=== PATIENT | female | born 1965 | race Caucasian/White ===

== ENCOUNTER 2022-11-06 15:08 | Inpatient (IN) | payer MEDICARE ==
[~2022-11-06] VITALS: Ht 165.1 cm; Wt 81.2 kg
[~2022-11-06 15:08] MED LIST: AMLO-257 PO; ARIP15TA27 PO; FLUO-177 PO; LEVO50 PO; METF-1211 PO; QUET25TA PO
[2022-11-06 16:56] LABS: BASOPHILS % (AUTO) 0.7 % (0.0-2.0); EOSINOPHILS % (AUTO) 1.4 % (1.0-6.0); HEMATOCRIT 39.1 % (36-46); HEMOGLOBIN 12.8 g/dL (12.0-16.0); LYMPHOCYTES # (AUTO) 1.9 K/uL (1.0-4.8); LYMPHOCYTES % (AUTO) 21.8 % (22.0-44.0); MEAN CORPUSCULAR HEMOGLOBIN 26.5 pg (26.0-34.0); MEAN CORPUSCULAR HGB CONC 32.8 G/dL (31.0-37.0); MEAN CORPUSCULAR VOLUME 81 fL (80-100); MONOCYTES # (AUTO) 0.6 K/uL (0.1-1.0); MONOCYTES % (AUTO) 6.9 % (2.0-9.0); NEUTROPHILS % (AUTO) 69.2 % (40.0-70.0); PLATELET COUNT (AUTO) 417 K/uL (150-450); RED BLOOD CELL COUNT(AUTO) 4.84 MIL/uL (4.00-5.20); RED CELL DISTRIBUTION WIDTH 13.8 % (11.5-14.5)
[2022-11-06 17:16] LABS: ANION GAP 7 mmol/L (8-16); CALCIUM, TOTAL 10.2 mg/dL (8.8-10.5); CARBON DIOXIDE 30 mmol/L (22-29); CHLORIDE 103 mmol/L (98-107); GLOMERULAR FILTR. RATE CALC > 60 mL/min (>60); GLUCOSE,RANDOM 111 mg/dL (70-110); POTASSIUM 4.2 mmol/L (3.5-5.1); SODIUM SERUM 140 mmol/L (136-145); UREA NITROGEN, BLOOD 16 mg/dL (7-18)
[2022-11-06 17:22] LABS: ALANINE AMINOTRANSFERASE 25 U/L (12-78); ALBUMIN 4.4 g/dL (3.4-5.0); ALKALINE PHOSPHATASE 62 U/L (46-116); ASPARTATE AMINOTRANSFERASE 17 U/L (15-37); BILIRUBIN,TOTAL 0.4 mg/dL (0.1-1.0); TOTAL PROTEIN, SERUM 7.8 g/dL (6.4-8.2)
[2022-11-06] MEDS ORDERED: LORazepam 2 MG TABLET PO ONE (19:15)
[2022-11-06] MEDS ORDERED: DiphenhydrAMINE HCL 25 MG CAPSULE PO ONE (19:15)
[2022-11-06] MEDS ORDERED: HALOPERIDOL 5 MG TABLET PO ONE (19:15)
[2022-11-06 19:48] LABS: COVID AG,FIA SOURCE NASOPHARYNGEAL
[2022-11-06 23:31] VITALS: BP 114/60
[2022-11-07 08:23] VITALS: BP 158/68
[2022-11-07] MEDS: ARIPiprazole 15 MG TABLET PO SCH (08:58)
[2022-11-07 09:53] LABS: BASOPHILS % (AUTO) 0.7 % (0.0-2.0); EOSINOPHILS % (AUTO) 2.2 % (1.0-6.0); HEMATOCRIT 38.2 % (36-46); HEMOGLOBIN 12.7 g/dL (12.0-16.0); LYMPHOCYTES # (AUTO) 1.3 K/uL (1.0-4.8); MEAN CORPUSCULAR HGB CONC 33.3 G/dL (31.0-37.0); MEAN CORPUSCULAR VOLUME 81 fL (80-100); MONOCYTES # (AUTO) 0.4 K/uL (0.1-1.0); NEUTROPHILS # (AUTO) 4.6 K/uL (1.8-7.7); NEUTROPHILS % (AUTO) 71.1 % (40.0-70.0); PLATELET COUNT (AUTO) 352 K/uL (150-450); RED BLOOD CELL COUNT(AUTO) 4.71 MIL/uL (4.00-5.20)
[2022-11-07] MEDS ORDERED: MAGNESIUM HYDROXIDE SUSPENSION 30 ML UDCUP PO PRN (10:15)
[2022-11-07] MEDS ORDERED: ONDANSETRON HCL 4 MG TABLET PO PRN (10:15)
[2022-11-07] MEDS ORDERED: CloNIDine HCL 0.1 MG TABLET PO PRN (10:15)
[2022-11-07] MEDS ORDERED: MAG HYDROX/AL HYDROX/SIMETH ES 30 ML SUSPENSION UDCUP PO PRN (10:15)
[2022-11-07] MEDS ORDERED: ALBUTEROL SULFATE HFA 90 MCG/PUFF 8 GM INHALER IH PRN (10:15)
[2022-11-07] MEDS ORDERED: LOPERAMIDE HCL 2 MG CAPSULE PO PRN (10:15)
[2022-11-07] MEDS ORDERED: NICOTINE 14 MG/24 HOUR PATCH TD PRN (10:15)
[2022-11-07] MEDS ORDERED: IBUPROFEN 400 MG TABLET PO PRN (10:15)
[2022-11-07] MEDS ORDERED: GuaiFENesin/D-METHORPHAN [SUGAR-FREE] 200-20MG/10 ML SYRUP UDCUP PO PRN (10:15)
[2022-11-07] MEDS ORDERED: PETROLATUM,WHITE 28 GM JELLY TP PRN (10:15)
[2022-11-07] MEDS ORDERED: DOCUSATE SODIUM 100 MG CAPSULE PO PRN (10:15)
[2022-11-07 10:19] LABS: ALANINE AMINOTRANSFERASE 40 U/L (12-78); ALKALINE PHOSPHATASE 63 U/L (46-116); ANION GAP 9 mmol/L (8-16); ASPARTATE AMINOTRANSFERASE 44 U/L (15-37); BILIRUBIN,TOTAL 0.5 mg/dL (0.1-1.0); CARBON DIOXIDE 28 mmol/L (22-29); CHLORIDE 102 mmol/L (98-107); CHOL/HDL RATIO 3.6 (3.9-5.7); CHOLESTEROL 161 mg/dL (131-200); CREATININE 0.88 mg/dL (0.60-1.30); GLOMERULAR FILTR. RATE CALC > 60 mL/min (>60); GLUCOSE,RANDOM 313 mg/dL (70-110); HDL CHOLESTEROL 45 mg/dL (40-60); LDL CHOL (CALC.) 82 mg/dL (0-130); POTASSIUM 3.9 mmol/L (3.5-5.1); SODIUM SERUM 139 mmol/L (136-145); TOTAL PROTEIN, SERUM 7.6 g/dL (6.4-8.2); TRIGLYCERIDES 172 mg/dL (15-150); UREA NITROGEN, BLOOD 16 mg/dL (7-18)
[2022-11-07 10:40] LABS: HCG,QUANTITATIVE 6 mIU/mL (0-6); THYROID STIMULATING HORMONE 0.43 uIU/mL (0.36-3.74)
[2022-11-07] MEDS ORDERED: HALOPERIDOL 5 MG TABLET PO PRN (14:45)
[2022-11-07] MEDS: AmLODIPine BESYLATE 5 MG TABLET PO SCH (16:38)
[2022-11-07] MEDS: MetFORMIN HCL 500 MG TABLET PO SCH (16:38)
[2022-11-07 17:37] VITALS: BP 142/66
[2022-11-07] MEDS ORDERED: INSULIN LISPRO 100 UNITS/ML SQ PRN (17:45)
[2022-11-07] MEDS ORDERED: DEXTROSE 50%-WATER 25 GM/50 ML SYRINGE IVP PRN (17:45)
[2022-11-07 17:57] LABS: GLUCOMETER DEV NAME(LOC) BV3S.; GLUCOSE,POINT OF CARE 229 MG/DL (70-110)
[2022-11-07 20:12] VITALS: BP 142/66
[2022-11-07] MEDS: FLUoxetine HCL 20 MG CAPSULE PO SCH (21:34)
[2022-11-07 21:36] LABS: GLUCOMETER DEV NAME(LOC) BV3S.; GLUCOSE,POINT OF CARE 172 MG/DL (70-110)
[2022-11-07] MEDS: ZOLPIDEM TARTRATE 10 MG TABLET PO PRN (21:39)
[2022-11-07] MEDS: LORazepam 2 MG TABLET PO PRN (21:40)
[2022-11-08] VITALS: BP 146/68
[2022-11-08] MEDS ORDERED: GLUCAGON,HUMAN RECOMBINANT 1 MG VIAL IM PRN
[2022-11-08] MEDS: MetFORMIN HCL 500 MG TABLET PO SCH ×2 (06:14→16:28)
[2022-11-08] MEDS: LEVOTHYROXINE SODIUM 50 MCG TABLET PO SCH (06:14)
[2022-11-08] MEDS: INSULIN LISPRO 100 UNITS/ML SQ PRN ×3 (06:17→16:35)
[2022-11-08 06:26] LABS: GLUCOMETER DEV NAME(LOC) BV3S.; GLUCOSE,POINT OF CARE 101 MG/DL (70-110)
[2022-11-08] MEDS: ARIPiprazole 15 MG TABLET PO SCH (08:04)
[2022-11-08] MEDS: AmLODIPine BESYLATE 5 MG TABLET PO SCH ×2 (08:05→16:28)
[2022-11-08] MEDS: LORazepam 2 MG TABLET PO PRN (08:05)
[2022-11-08 09:26] VITALS: BP 150/76
[2022-11-08 10:48] VITALS: BP 150/76
[2022-11-08 11:51] LABS: GLUCOMETER DEV NAME(LOC) BV3S.; GLUCOSE,POINT OF CARE 187 MG/DL (70-110)
[2022-11-08] MEDS ORDERED: ARIPiprazole LAUROXIL ER SUSPENSION 882 MG/3.2 ML SYRINGE IM ONE (17:00)
[2022-11-08] MEDS ORDERED: ARIPiprazole LAUROXIL,SUBMICR. ER SUSPENSION 675 MG/2.4 ML SYRINGE IM ONE (17:00)
[2022-11-08 17:21] LABS: GLUCOMETER DEV NAME(LOC) BV3S.; GLUCOSE,POINT OF CARE 178 MG/DL (70-110)
[2022-11-08 20:03] VITALS: BP_SYST 137; BP_SYST 139; BP_DIAS 60; BP_DIAS 65
[2022-11-08] MEDS: FLUoxetine HCL 20 MG CAPSULE PO SCH (20:06)
[2022-11-08 20:40] LABS: GLUCOMETER DEV NAME(LOC) BV3S.; GLUCOSE,POINT OF CARE 136 MG/DL (70-110)
[2022-11-09 05:50] LABS: GLUCOMETER DEV NAME(LOC) BV3S.; GLUCOSE,POINT OF CARE 211 MG/DL (70-110)
[2022-11-09] MEDS: LEVOTHYROXINE SODIUM 50 MCG TABLET PO SCH (06:16)
[2022-11-09] MEDS: MetFORMIN HCL 500 MG TABLET PO SCH ×2 (06:16→16:47)
[2022-11-09] MEDS: INSULIN LISPRO 100 UNITS/ML SQ PRN ×3 (06:27→20:40)
[2022-11-09 07:39] LABS: AMPHET/METH SCREEN,URINE NEGATIVE (NEGATIVE); BARBITURATE SCREEN, URINE NEGATIVE (NEGATIVE); BENZODIAZEPINES SCREEN,URINE NEGATIVE (NEGATIVE); CANNABINOID SCREEN,URINE NEGATIVE (NEGATIVE); COCAINE SCREEN,URINE NEGATIVE (NEGATIVE); METHADONE SCREEN, URINE NEGATIVE (NEGATIVE); OPIATE SCREEN,URINE NEGATIVE (NEGATIVE); PHENCYCLIDINE SCREEN,URINE NEGATIVE (NEGATIVE)
[2022-11-09] MEDS: LORazepam 2 MG TABLET PO PRN ×2 (08:12→16:47)
[2022-11-09] MEDS: CHOLECALCIFEROL (VIT D3) 5,000 [125 MCG] UNITS CAPSULE PO SCH (08:12)
[2022-11-09] MEDS: ARIPiprazole 15 MG TABLET PO SCH (08:12)
[2022-11-09] MEDS: AmLODIPine BESYLATE 5 MG TABLET PO SCH ×2 (08:12→16:47)
[2022-11-09 08:23] VITALS: BP 118/79
[2022-11-09] MEDS ORDERED: LISI40TA9 PO (12:17)
[2022-11-09] MEDS ORDERED: ROSU5TAB PO (12:17)
[2022-11-09] MEDS ORDERED: GLIM4 PO (12:17)
[2022-11-09] MEDS ORDERED: PIOG30TA70 PO (12:17)
[2022-11-09] MEDS ORDERED: QUET50TA24 PO (12:17)
[2022-11-09] MEDS ORDERED: FURO20TA4 PO (12:17)
[2022-11-09] MEDS ORDERED: ATEN-72 PO (12:17)
[2022-11-09] MEDS ORDERED: INSU3INS3 SQ (12:17)
[2022-11-09] MEDS ORDERED: FENO160T16 PO (12:17)
[2022-11-09] MEDS ORDERED: HYDR25TA84 PO (12:17)
[2022-11-09 12:51] LABS: GLUCOMETER DEV NAME(LOC) BV3S.; GLUCOSE,POINT OF CARE 128 MG/DL (70-110)
[2022-11-09 16:51] LABS: GLUCOMETER DEV NAME(LOC) BV3S.; GLUCOSE,POINT OF CARE 169 MG/DL (70-110)
[2022-11-09 20:00] VITALS: BP 158/81
[2022-11-09] MEDS: FLUoxetine HCL 20 MG CAPSULE PO SCH (20:15)
[2022-11-09 20:46] LABS: GLUCOMETER DEV NAME(LOC) BV3S.; GLUCOSE,POINT OF CARE 220 MG/DL (70-110)
[2022-11-10] MEDS: MetFORMIN HCL 500 MG TABLET PO SCH ×2 (06:12→16:29)
[2022-11-10] MEDS: LEVOTHYROXINE SODIUM 50 MCG TABLET PO SCH (06:12)
[2022-11-10] MEDS: INSULIN LISPRO 100 UNITS/ML SQ PRN ×4 (06:17→21:27)
[2022-11-10 06:26] LABS: GLUCOMETER DEV NAME(LOC) BV3S.; GLUCOSE,POINT OF CARE 148 MG/DL (70-110)
[2022-11-10 08:08] VITALS: BP 166/80
[2022-11-10] MEDS: ARIPiprazole 15 MG TABLET PO SCH (08:36)
[2022-11-10] MEDS: LORazepam 2 MG TABLET PO PRN ×2 (08:36→20:08)
[2022-11-10] MEDS: AmLODIPine BESYLATE 5 MG TABLET PO SCH ×2 (08:36→16:29)
[2022-11-10 12:41] LABS: GLUCOMETER DEV NAME(LOC) BV3S.; GLUCOSE,POINT OF CARE 182 MG/DL (70-110)
[2022-11-10 14:15] VITALS: BP 159/88
[2022-11-10] MEDS ORDERED: AmLODIPine BESYLATE 5 MG TABLET PO ONE (14:45)
[2022-11-10] MEDS: LISINOPRIL 10 MG TABLET PO SCH (14:54)
[2022-11-10] MEDS ORDERED: AmLODIPine BESYLATE 5 MG TABLET PO SCH (17:00)
[2022-11-10 17:06] LABS: GLUCOMETER DEV NAME(LOC) BV3S.; GLUCOSE,POINT OF CARE 182 MG/DL (70-110)
[2022-11-10] MEDS: FLUoxetine HCL 20 MG CAPSULE PO SCH (20:07)
[2022-11-10] MEDS: ACETAMINOPHEN 325 MG TABLET PO PRN (20:11)
[2022-11-10 21:36] LABS: GLUCOMETER DEV NAME(LOC) BV3S.; GLUCOSE,POINT OF CARE 196 MG/DL (70-110)
[2022-11-11] MEDS: LEVOTHYROXINE SODIUM 50 MCG TABLET PO SCH (06:12)
[2022-11-11] MEDS: MetFORMIN HCL 500 MG TABLET PO SCH ×2 (06:13→16:51)
[2022-11-11] MEDS: INSULIN LISPRO 100 UNITS/ML SQ PRN ×4 (06:28→20:59)
[2022-11-11 06:31] LABS: GLUCOMETER DEV NAME(LOC) BV3S.; GLUCOSE,POINT OF CARE 158 MG/DL (70-110)
[2022-11-11] MEDS: LISINOPRIL 10 MG TABLET PO SCH (08:29)
[2022-11-11] MEDS: ARIPiprazole 15 MG TABLET PO SCH (08:29)
[2022-11-11] MEDS: AmLODIPine BESYLATE 5 MG TABLET PO SCH ×2 (08:29→16:51)
[2022-11-11 08:34] VITALS: BP 141/75
[2022-11-11 11:57] LABS: GLUCOMETER DEV NAME(LOC) BV3S.; GLUCOSE,POINT OF CARE 222 MG/DL (70-110)
[2022-11-11 16:41] LABS: GLUCOMETER DEV NAME(LOC) BV3S.; GLUCOSE,POINT OF CARE 232 MG/DL (70-110)
[2022-11-11] MEDS: FLUoxetine HCL 20 MG CAPSULE PO SCH (20:13)
[2022-11-11 21:00] LABS: GLUCOMETER DEV NAME(LOC) BV3S.; GLUCOSE,POINT OF CARE 192 MG/DL (70-110)
[2022-11-12] MEDS: MetFORMIN HCL 500 MG TABLET PO SCH ×2 (06:09→16:34)
[2022-11-12] MEDS: LEVOTHYROXINE SODIUM 50 MCG TABLET PO SCH (06:09)
[2022-11-12] MEDS: INSULIN LISPRO 100 UNITS/ML SQ PRN ×4 (06:27→20:48)
[2022-11-12 06:31] LABS: GLUCOMETER DEV NAME(LOC) BV3S.; GLUCOSE,POINT OF CARE 183 MG/DL (70-110)
[2022-11-12] MEDS: ARIPiprazole 15 MG TABLET PO SCH (08:14)
[2022-11-12] MEDS: LISINOPRIL 10 MG TABLET PO SCH (08:14)
[2022-11-12] MEDS: AmLODIPine BESYLATE 5 MG TABLET PO SCH ×2 (08:14→16:34)
[2022-11-12 08:20] VITALS: BP 158/63
[2022-11-12] MEDS: LORazepam 2 MG TABLET PO PRN (09:53)
[2022-11-12 11:51] LABS: GLUCOMETER DEV NAME(LOC) BV3S.; GLUCOSE,POINT OF CARE 152 MG/DL (70-110)
[2022-11-12 15:56] LABS: GLUCOMETER DEV NAME(LOC) POC.BV
[2022-11-12 17:01] LABS: GLUCOMETER DEV NAME(LOC) BV3S.; GLUCOSE,POINT OF CARE 152 MG/DL (70-110)
[2022-11-12] MEDS: FLUoxetine HCL 20 MG CAPSULE PO SCH (20:44)
[2022-11-12 20:45] VITALS: BP 171/81
[2022-11-12 20:46] LABS: GLUCOMETER DEV NAME(LOC) BV3S.; GLUCOSE,POINT OF CARE 188 MG/DL (70-110)
[2022-11-13] MEDS: LEVOTHYROXINE SODIUM 50 MCG TABLET PO SCH (06:24)
[2022-11-13 06:26] LABS: GLUCOMETER DEV NAME(LOC) BV3S.; GLUCOSE,POINT OF CARE 175 MG/DL (70-110)
[2022-11-13] MEDS: INSULIN LISPRO 100 UNITS/ML SQ PRN ×4 (06:53→21:16)
[2022-11-13] MEDS: MetFORMIN HCL 500 MG TABLET PO SCH ×2 (06:55→16:44)
[2022-11-13 08:09] VITALS: BP 142/69
[2022-11-13] MEDS: LISINOPRIL 10 MG TABLET PO SCH (08:41)
[2022-11-13] MEDS: AmLODIPine BESYLATE 5 MG TABLET PO SCH ×2 (08:41→16:44)
[2022-11-13] MEDS: ARIPiprazole 15 MG TABLET PO SCH (08:41)
[2022-11-13] MEDS: LORazepam 2 MG TABLET PO PRN (09:55)
[2022-11-13 12:07] LABS: GLUCOMETER DEV NAME(LOC) BV3S.; GLUCOSE,POINT OF CARE 187 MG/DL (70-110)
[2022-11-13 16:26] VITALS: BP 171/70
[2022-11-13 16:51] LABS: GLUCOMETER DEV NAME(LOC) BV3S.; GLUCOSE,POINT OF CARE 231 MG/DL (70-110)
[2022-11-13 20:00] VITALS: BP 146/80
[2022-11-13] MEDS: FLUoxetine HCL 20 MG CAPSULE PO SCH (20:30)
[2022-11-13 20:41] LABS: GLUCOMETER DEV NAME(LOC) BV3S.; GLUCOSE,POINT OF CARE 209 MG/DL (70-110)
[2022-11-14] MEDS: LEVOTHYROXINE SODIUM 50 MCG TABLET PO SCH (06:35)
[2022-11-14] MEDS: MetFORMIN HCL 500 MG TABLET PO SCH ×2 (06:43→16:49)
[2022-11-14] MEDS: INSULIN LISPRO 100 UNITS/ML SQ PRN ×3 (06:46→16:53)
[2022-11-14 08:10] VITALS: BP 143/72
[2022-11-14] MEDS: LISINOPRIL 10 MG TABLET PO SCH (08:18)
[2022-11-14] MEDS: ARIPiprazole 15 MG TABLET PO SCH (08:19)
[2022-11-14] MEDS: AmLODIPine BESYLATE 5 MG TABLET PO SCH ×2 (08:19→16:49)
[2022-11-14] MEDS: LORazepam 2 MG TABLET PO PRN (11:55)
[2022-11-14 11:56] LABS: GLUCOMETER DEV NAME(LOC) BV3S.; GLUCOSE,POINT OF CARE 193 MG/DL (70-110)
[2022-11-14 16:51] LABS: GLUCOMETER DEV NAME(LOC) BV3S.; GLUCOSE,POINT OF CARE 237 MG/DL (70-110)
[2022-11-14 20:00] VITALS: BP 140/76
[2022-11-14] MEDS: FLUoxetine HCL 20 MG CAPSULE PO SCH (21:03)
[2022-11-15] MEDS: MetFORMIN HCL 500 MG TABLET PO SCH ×2 (06:24→16:13)
[2022-11-15] MEDS: LEVOTHYROXINE SODIUM 50 MCG TABLET PO SCH (06:25)
[2022-11-15 06:41] LABS: GLUCOMETER DEV NAME(LOC) BV3S.; GLUCOSE,POINT OF CARE 207 MG/DL (70-110)
[2022-11-15] MEDS: INSULIN LISPRO 100 UNITS/ML SQ PRN ×4 (06:46→20:37)
[2022-11-15] MEDS: ARIPiprazole 15 MG TABLET PO SCH (08:18)
[2022-11-15] MEDS: LISINOPRIL 10 MG TABLET PO SCH (08:18)
[2022-11-15] MEDS: AmLODIPine BESYLATE 5 MG TABLET PO SCH ×2 (08:18→16:13)
[2022-11-15 08:46] VITALS: BP 122/80
[2022-11-15 11:41] LABS: GLUCOMETER DEV NAME(LOC) BV3S.; GLUCOSE,POINT OF CARE 207 MG/DL (70-110)
[2022-11-15] MEDS: ACETAMINOPHEN 325 MG TABLET PO PRN (13:27)
[2022-11-15] MEDS: LORazepam 2 MG TABLET PO PRN (13:27)
[2022-11-15 16:31] LABS: GLUCOMETER DEV NAME(LOC) BV3S.; GLUCOSE,POINT OF CARE 210 MG/DL (70-110)
[2022-11-15 20:03] VITALS: BP 140/70
[2022-11-15] MEDS: FLUoxetine HCL 20 MG CAPSULE PO SCH (20:05)
[2022-11-15 20:56] LABS: GLUCOMETER DEV NAME(LOC) BV3S.; GLUCOSE,POINT OF CARE 214 MG/DL (70-110)
[2022-11-16] MEDS: MetFORMIN HCL 500 MG TABLET PO SCH ×2 (06:34→16:27)
[2022-11-16] MEDS: LEVOTHYROXINE SODIUM 50 MCG TABLET PO SCH (06:34)
[2022-11-16] MEDS: INSULIN LISPRO 100 UNITS/ML SQ PRN ×4 (06:39→20:54)
[2022-11-16 06:51] LABS: GLUCOMETER DEV NAME(LOC) BV3S.; GLUCOSE,POINT OF CARE 168 MG/DL (70-110)
[2022-11-16] MEDS: AmLODIPine BESYLATE 5 MG TABLET PO SCH ×2 (08:15→16:27)
[2022-11-16] MEDS: CHOLECALCIFEROL (VIT D3) 5,000 [125 MCG] UNITS CAPSULE PO SCH (08:15)
[2022-11-16] MEDS: ARIPiprazole 15 MG TABLET PO SCH (08:15)
[2022-11-16] MEDS: LISINOPRIL 10 MG TABLET PO SCH (08:16)
[2022-11-16 08:17] VITALS: BP 154/76
[2022-11-16 11:36] LABS: GLUCOMETER DEV NAME(LOC) BV3S.; GLUCOSE,POINT OF CARE 224 MG/DL (70-110)
[2022-11-16 16:35] LABS: GLUCOMETER DEV NAME(LOC) BV3S.; GLUCOSE,POINT OF CARE 237 MG/DL (70-110)
[2022-11-16] MEDS: FLUoxetine HCL 20 MG CAPSULE PO SCH (20:28)
[2022-11-16] MEDS: ZOLPIDEM TARTRATE 10 MG TABLET PO PRN (20:28)
[2022-11-16 20:56] LABS: GLUCOMETER DEV NAME(LOC) BV3S.; GLUCOSE,POINT OF CARE 228 MG/DL (70-110)
[2022-11-16 22:00] VITALS: BP 140/65
[2022-11-17 06:16] LABS: GLUCOMETER DEV NAME(LOC) BV3S.; GLUCOSE,POINT OF CARE 181 MG/DL (70-110)
[2022-11-17] MEDS: LEVOTHYROXINE SODIUM 50 MCG TABLET PO SCH (06:19)
[2022-11-17] MEDS: MetFORMIN HCL 500 MG TABLET PO SCH ×2 (06:23→16:20)
[2022-11-17] MEDS: INSULIN LISPRO 100 UNITS/ML SQ PRN ×3 (06:37→20:42)
[2022-11-17] MEDS: AmLODIPine BESYLATE 5 MG TABLET PO SCH ×2 (08:25→16:20)
[2022-11-17] MEDS: ARIPiprazole 15 MG TABLET PO SCH (08:25)
[2022-11-17] MEDS: LISINOPRIL 10 MG TABLET PO SCH (08:25)
[2022-11-17 08:56] VITALS: BP 159/75
[2022-11-17 16:41] LABS: GLUCOMETER DEV NAME(LOC) BV3S.; GLUCOSE,POINT OF CARE 211 MG/DL (70-110)
[2022-11-17] MEDS: FLUoxetine HCL 20 MG CAPSULE PO SCH (20:15)
[2022-11-17 20:50] LABS: GLUCOMETER DEV NAME(LOC) BV3S.; GLUCOSE,POINT OF CARE 208 MG/DL (70-110)
[2022-11-17 21:27] VITALS: BP 129/80
[2022-11-18 06:26] LABS: GLUCOMETER DEV NAME(LOC) BV3S.; GLUCOSE,POINT OF CARE 228 MG/DL (70-110)
[2022-11-18] MEDS: INSULIN LISPRO 100 UNITS/ML SQ PRN ×2 (06:33→11:44)
[2022-11-18] MEDS: LEVOTHYROXINE SODIUM 50 MCG TABLET PO SCH (06:34)
[2022-11-18] MEDS: MetFORMIN HCL 500 MG TABLET PO SCH (06:41)
[2022-11-18 08:25] VITALS: BP 132/65
[2022-11-18] MEDS: LISINOPRIL 10 MG TABLET PO SCH (08:45)
[2022-11-18] MEDS: ARIPiprazole 15 MG TABLET PO SCH (08:45)
[2022-11-18] MEDS: AmLODIPine BESYLATE 5 MG TABLET PO SCH (08:45)
[2022-11-18] MEDS ORDERED: CHOL500013 PO (09:04)
[2022-11-18] MEDS ORDERED: LISI-893 PO (09:04)
[2022-11-18] MEDS ORDERED: LEVO50 PO (09:04)
[2022-11-18] MEDS ORDERED: FLUO20CA36 PO (09:04)
[2022-11-18] MEDS ORDERED: AMLO-257 PO (09:04)
[2022-11-18] MEDS ORDERED: ARIP882S2 IM (09:04)
[2022-11-18] MEDS ORDERED: METF-1211 PO (09:04)
[2022-11-18 11:16] LABS: GLUCOMETER DEV NAME(LOC) BV3S.; GLUCOSE,POINT OF CARE 309 MG/DL (70-110)
[2022-12-08] MEDS ORDERED: ARIPiprazole LAUROXIL ER SUSPENSION 882 MG/3.2 ML SYRINGE IM SCH (09:00)
== END 2022-11-18 13:30 | disposition home or self-care (01) | DRG 885 ==
LOC: EMS 15:11 → B3A 20:00
PROVIDERS: ADMIT Psychiatry & Neurology Psychiatry; ATTEND Psychiatry & Neurology Psychiatry
DX: F20.0 Paranoid schizophrenia (principal); E11.65 Type 2 diabetes mellitus with hyperglycemia; F10.10 Alcohol abuse, uncomplicated; I10 Essential (primary) hypertension; Z20.822 Contact with and (suspected) exposure to COVID-19; E03.9 Hypothyroidism, unspecified; F17.210 Nicotine dependence, cigarettes, uncomplicated; E78.00 Pure hypercholesterolemia, unspecified; F41.9 Anxiety disorder, unspecified; F32.A Depression, unspecified; F19.10 Other psychoactive substance abuse, uncomplicated; Y90.0 Blood alcohol level of less than 20 mg/100 ml; Z88.7 Allergy status to serum and vaccine; Z79.84 Long term (current) use of oral hypoglycemic drugs; Z79.899 Other long term (current) drug therapy; Z81.8 Family history of other mental and behavioral disorders
CPT/HCPCS: 80053; 80061; 80307; 82962; 83036; 84443; 84702; 84703; 85025; 99285; G0480; J3535; Q9967

== ENCOUNTER 2022-11-20 12:46 | Inpatient (IN) | payer MEDICARE ==
[~2022-11-20] VITALS: Ht 165.1 cm; Wt 80.4 kg
[~2022-11-20 12:46] MED LIST changes: -ARIP15TA27 PO; +ARIP882S2 IM; +CHOL500013 PO; -FLUO-177 PO; +FLUO20CA36 PO; +LISI-893 PO; -QUET25TA PO
[2022-11-20 13:44] LABS: EOSINOPHILS % (AUTO) 2.9 % (1.0-6.0); HEMATOCRIT 38.7 % (36-46); LYMPHOCYTES # (AUTO) 1.7 K/uL (1.0-4.8); LYMPHOCYTES % (AUTO) 21.8 % (22.0-44.0); MEAN CORPUSCULAR HEMOGLOBIN 26.8 pg (26.0-34.0); MEAN CORPUSCULAR HGB CONC 33.5 G/dL (31.0-37.0); MEAN CORPUSCULAR VOLUME 80 fL (80-100); MONOCYTES # (AUTO) 0.5 K/uL (0.1-1.0); MONOCYTES % (AUTO) 6.5 % (2.0-9.0); NEUTROPHILS # (AUTO) 5.4 K/uL (1.8-7.7); NEUTROPHILS % (AUTO) 67.8 % (40.0-70.0); PLATELET COUNT (AUTO) 330 K/uL (150-450); RED BLOOD CELL COUNT(AUTO) 4.83 MIL/uL (4.00-5.20); RED CELL DISTRIBUTION WIDTH 13.8 % (11.5-14.5)
[2022-11-20 13:52] LABS: ANION GAP 8 mmol/L (8-16); CARBON DIOXIDE 28 mmol/L (22-29); CHLORIDE 102 mmol/L (98-107); CREATININE 0.77 mg/dL (0.60-1.30); GLOMERULAR FILTR. RATE CALC > 60 mL/min (>60); GLUCOSE,RANDOM 218 mg/dL (70-110); POTASSIUM 4.2 mmol/L (3.5-5.1); SODIUM SERUM 138 mmol/L (136-145)
[2022-11-20 13:58] LABS: ALANINE AMINOTRANSFERASE 34 U/L (12-78); ALBUMIN 3.8 g/dL (3.4-5.0); ALKALINE PHOSPHATASE 94 U/L (46-116); ASPARTATE AMINOTRANSFERASE 21 U/L (15-37); BILIRUBIN,TOTAL 0.6 mg/dL (0.1-1.0); TOTAL PROTEIN, SERUM 7.4 g/dL (6.4-8.2)
[2022-11-20] MEDS ORDERED: HALOPERIDOL 5 MG TABLET PO PRN (17:15)
[2022-11-20] MEDS ORDERED: LORazepam 2 MG TABLET PO PRN (17:15)
[2022-11-20 17:49] LABS: COVID AG,FIA SOURCE NASOPHARYNGEAL
[2022-11-20 21:44] VITALS: BP 171/94
[2022-11-20 22:10] LABS: GLUCOMETER DEV NAME(LOC) BV2S.; GLUCOSE,POINT OF CARE 327 MG/DL (70-110)
[2022-11-20 22:30] VITALS: BP 159/80
[2022-11-21] MEDS ORDERED: MetFORMIN HCL 500 MG TABLET PO ONE
[2022-11-21] MEDS ORDERED: AmLODIPine BESYLATE 5 MG TABLET PO ONE
[2022-11-21] MEDS ORDERED: MetFORMIN HCL 500 MG TABLET PO SCH (07:00)
[2022-11-21 07:07] VITALS: BP 148/78
[2022-11-21 08:56] VITALS: BP 144/64
[2022-11-21] MEDS ORDERED: AmLODIPine BESYLATE 5 MG TABLET PO SCH ×2 (09:00)
[2022-11-21] MEDS ORDERED: IBUPROFEN 400 MG TABLET PO PRN (10:00)
[2022-11-21] MEDS ORDERED: MAGNESIUM HYDROXIDE SUSPENSION 30 ML UDCUP PO PRN (10:00)
[2022-11-21] MEDS ORDERED: NICOTINE 14 MG/24 HOUR PATCH TD PRN (10:00)
[2022-11-21] MEDS ORDERED: ALBUTEROL SULFATE HFA 90 MCG/PUFF 8 GM INHALER IH PRN (10:00)
[2022-11-21] MEDS ORDERED: ONDANSETRON HCL 4 MG TABLET PO PRN (10:00)
[2022-11-21] MEDS ORDERED: GuaiFENesin/D-METHORPHAN [SUGAR-FREE] 200-20MG/10 ML SYRUP UDCUP PO PRN (10:00)
[2022-11-21] MEDS ORDERED: LOPERAMIDE HCL 2 MG CAPSULE PO PRN (10:00)
[2022-11-21] MEDS ORDERED: DOCUSATE SODIUM 100 MG CAPSULE PO PRN (10:00)
[2022-11-21] MEDS ORDERED: PETROLATUM,WHITE 28 GM JELLY TP PRN (10:00)
[2022-11-21] MEDS ORDERED: MAG HYDROX/AL HYDROX/SIMETH ES 30 ML SUSPENSION UDCUP PO PRN (10:00)
[2022-11-21] MEDS ORDERED: CloNIDine HCL 0.1 MG TABLET PO PRN (10:00)
[2022-11-21] MEDS ORDERED: GLUCAGON,HUMAN RECOMBINANT 1 MG VIAL IM PRN (12:45)
[2022-11-21] MEDS: MetFORMIN HCL 500 MG TABLET PO SCH (17:25)
[2022-11-21] MEDS: AmLODIPine BESYLATE 5 MG TABLET PO SCH (17:25)
[2022-11-21] MEDS: INSULIN LISPRO 100 UNITS/ML SQ PRN ×2 (17:43→23:25)
[2022-11-21 17:51] LABS: GLUCOMETER DEV NAME(LOC) BV2S.; GLUCOSE,POINT OF CARE 224 MG/DL (70-110)
[2022-11-21 20:44] VITALS: BP 134/68
[2022-11-21] MEDS: FLUoxetine HCL 20 MG CAPSULE PO SCH (21:43)
[2022-11-22 05:11] LABS: GLUCOMETER DEV NAME(LOC) BV2S.; GLUCOSE,POINT OF CARE 185 MG/DL (70-110)
[2022-11-22 06:16] LABS: GLUCOMETER DEV NAME(LOC) BV2S.; GLUCOSE,POINT OF CARE 216 MG/DL (70-110)
[2022-11-22] MEDS: LEVOTHYROXINE SODIUM 50 MCG TABLET PO SCH (06:41)
[2022-11-22] MEDS: MetFORMIN HCL 500 MG TABLET PO SCH ×2 (06:41→16:37)
[2022-11-22] MEDS: INSULIN LISPRO 100 UNITS/ML SQ PRN ×4 (06:43→20:26)
[2022-11-22] MEDS: LISINOPRIL 10 MG TABLET PO SCH (08:24)
[2022-11-22] MEDS: DIVALPROEX SODIUM 500 MG DR TABLET PO SCH ×2 (08:24→20:17)
[2022-11-22] MEDS: AmLODIPine BESYLATE 5 MG TABLET PO SCH ×2 (08:24→16:37)
[2022-11-22 09:02] VITALS: BP 149/82
[2022-11-22 11:35] LABS: GLUCOMETER DEV NAME(LOC) BV2S.; GLUCOSE,POINT OF CARE 224 MG/DL (70-110)
[2022-11-22 16:35] VITALS: BP 150/84
[2022-11-22 16:55] LABS: GLUCOMETER DEV NAME(LOC) BV2S.; GLUCOSE,POINT OF CARE 251 MG/DL (70-110)
[2022-11-22 20:11] VITALS: BP 148/80
[2022-11-22] MEDS: FLUoxetine HCL 20 MG CAPSULE PO SCH (20:17)
[2022-11-22 20:46] LABS: GLUCOMETER DEV NAME(LOC) BV2S.; GLUCOSE,POINT OF CARE 205 MG/DL (70-110)
[2022-11-23 06:26] LABS: GLUCOMETER DEV NAME(LOC) BV2S.; GLUCOSE,POINT OF CARE 202 MG/DL (70-110)
[2022-11-23] MEDS: MetFORMIN HCL 500 MG TABLET PO SCH ×2 (06:41→16:30)
[2022-11-23] MEDS: LEVOTHYROXINE SODIUM 50 MCG TABLET PO SCH (06:41)
[2022-11-23] MEDS: INSULIN LISPRO 100 UNITS/ML SQ PRN ×3 (06:42→16:49)
[2022-11-23 09:01] VITALS: BP 149/84
[2022-11-23] MEDS: DIVALPROEX SODIUM 500 MG DR TABLET PO SCH ×2 (09:05→21:00)
[2022-11-23] MEDS: CHOLECALCIFEROL (VIT D3) 5,000 [125 MCG] UNITS CAPSULE PO SCH (09:05)
[2022-11-23] MEDS: AmLODIPine BESYLATE 5 MG TABLET PO SCH ×2 (09:05→16:30)
[2022-11-23] MEDS: LISINOPRIL 10 MG TABLET PO SCH (09:05)
[2022-11-23 11:56] LABS: GLUCOMETER DEV NAME(LOC) BV2S.; GLUCOSE,POINT OF CARE 196 MG/DL (70-110)
[2022-11-23 16:30] VITALS: BP 160/82
[2022-11-23 17:12] LABS: GLUCOMETER DEV NAME(LOC) BV2S.; GLUCOSE,POINT OF CARE 289 MG/DL (70-110)
[2022-11-23 20:31] VITALS: BP 159/78
[2022-11-23] MEDS: FLUoxetine HCL 20 MG CAPSULE PO SCH (21:00)
[2022-11-24 06:56] LABS: GLUCOMETER DEV NAME(LOC) BV2S.; GLUCOSE,POINT OF CARE 126 MG/DL (70-110)
[2022-11-24] MEDS: MetFORMIN HCL 500 MG TABLET PO SCH ×2 (07:19→17:27)
[2022-11-24] MEDS: LEVOTHYROXINE SODIUM 50 MCG TABLET PO SCH (07:19)
[2022-11-24 08:00] VITALS: BP 170/77
[2022-11-24] MEDS: AmLODIPine BESYLATE 5 MG TABLET PO SCH ×2 (08:31→17:27)
[2022-11-24] MEDS: LISINOPRIL 10 MG TABLET PO SCH (08:32)
[2022-11-24] MEDS: DIVALPROEX SODIUM 500 MG DR TABLET PO SCH ×2 (08:32→21:06)
[2022-11-24 09:00] VITALS: BP 154/74
[2022-11-24 09:09] VITALS: BP 140/90
[2022-11-24] MEDS: INSULIN LISPRO 100 UNITS/ML SQ PRN ×3 (11:31→21:09)
[2022-11-24 11:32] LABS: GLUCOMETER DEV NAME(LOC) BV2S.; GLUCOSE,POINT OF CARE 243 MG/DL (70-110)
[2022-11-24 12:00] VITALS: BP 150/70
[2022-11-24 18:18] VITALS: BP 140/70
[2022-11-24 20:19] VITALS: BP 148/75
[2022-11-24 20:36] LABS: GLUCOMETER DEV NAME(LOC) BV2S.; GLUCOSE,POINT OF CARE 251 MG/DL (70-110)
[2022-11-24] MEDS: FLUoxetine HCL 20 MG CAPSULE PO SCH (21:06)
[2022-11-25] MEDS: LEVOTHYROXINE SODIUM 50 MCG TABLET PO SCH (06:43)
[2022-11-25] MEDS: INSULIN LISPRO 100 UNITS/ML SQ PRN ×4 (06:44→20:14)
[2022-11-25] MEDS: MetFORMIN HCL 500 MG TABLET PO SCH ×2 (07:07→16:07)
[2022-11-25 07:11] LABS: GLUCOMETER DEV NAME(LOC) BV2S.; GLUCOSE,POINT OF CARE 190 MG/DL (70-110)
[2022-11-25] MEDS: DIVALPROEX SODIUM 500 MG DR TABLET PO SCH ×2 (08:39→20:09)
[2022-11-25] MEDS: LISINOPRIL 10 MG TABLET PO SCH (08:39)
[2022-11-25] MEDS: AmLODIPine BESYLATE 5 MG TABLET PO SCH ×2 (08:39→16:07)
[2022-11-25 09:15] VITALS: BP 140/78
[2022-11-25 11:21] LABS: GLUCOMETER DEV NAME(LOC) POC.BV
[2022-11-25 11:31] LABS: GLUCOMETER DEV NAME(LOC) BV2S.; GLUCOSE,POINT OF CARE 229 MG/DL (70-110)
[2022-11-25 16:46] LABS: GLUCOMETER DEV NAME(LOC) BV2S.; GLUCOSE,POINT OF CARE 190 MG/DL (70-110)
[2022-11-25] MEDS: FLUoxetine HCL 20 MG CAPSULE PO SCH (20:09)
[2022-11-25 20:49] VITALS: BP 141/80
[2022-11-25 20:51] LABS: GLUCOMETER DEV NAME(LOC) BV2S.; GLUCOSE,POINT OF CARE 180 MG/DL (70-110)
[2022-11-26 06:06] LABS: GLUCOMETER DEV NAME(LOC) BV2S.; GLUCOSE,POINT OF CARE 179 MG/DL (70-110)
[2022-11-26] MEDS: LEVOTHYROXINE SODIUM 50 MCG TABLET PO SCH (06:26)
[2022-11-26] MEDS: MetFORMIN HCL 500 MG TABLET PO SCH ×2 (06:26→16:38)
[2022-11-26] MEDS: INSULIN LISPRO 100 UNITS/ML SQ PRN ×3 (06:29→20:39)
[2022-11-26 08:31] VITALS: BP 144/67
[2022-11-26] MEDS: DIVALPROEX SODIUM 500 MG DR TABLET PO SCH ×2 (08:33→20:29)
[2022-11-26] MEDS: AmLODIPine BESYLATE 5 MG TABLET PO SCH ×2 (08:33→16:39)
[2022-11-26] MEDS: LISINOPRIL 10 MG TABLET PO SCH (08:33)
[2022-11-26 11:20] LABS: GLUCOMETER DEV NAME(LOC) BV2S.; GLUCOSE,POINT OF CARE 182 MG/DL (70-110)
[2022-11-26] MEDS: HYDROCORTISONE 1% 30 GM OINTMENT TP SCH (13:22)
[2022-11-26 16:55] LABS: GLUCOMETER DEV NAME(LOC) BV2S.; GLUCOSE,POINT OF CARE 154 MG/DL (70-110)
[2022-11-26 20:00] VITALS: BP 155/90
[2022-11-26] MEDS: FLUoxetine HCL 20 MG CAPSULE PO SCH (20:29)
[2022-11-26] MEDS: ZOLPIDEM TARTRATE 10 MG TABLET PO PRN (20:55)
[2022-11-26 21:12] LABS: GLUCOMETER DEV NAME(LOC) BV2S.; GLUCOSE,POINT OF CARE 286 MG/DL (70-110)
[2022-11-27 06:26] LABS: GLUCOMETER DEV NAME(LOC) BV2S.; GLUCOSE,POINT OF CARE 158 MG/DL (70-110)
[2022-11-27] MEDS: INSULIN LISPRO 100 UNITS/ML SQ PRN ×4 (06:44→20:38)
[2022-11-27] MEDS: MetFORMIN HCL 500 MG TABLET PO SCH ×2 (06:49→16:52)
[2022-11-27] MEDS: LEVOTHYROXINE SODIUM 50 MCG TABLET PO SCH (06:49)
[2022-11-27] MEDS: DIVALPROEX SODIUM 500 MG DR TABLET PO SCH ×2 (08:39→20:15)
[2022-11-27] MEDS: LISINOPRIL 10 MG TABLET PO SCH (08:40)
[2022-11-27] MEDS: AmLODIPine BESYLATE 5 MG TABLET PO SCH ×2 (08:45→16:52)
[2022-11-27] MEDS: HYDROCORTISONE 1% 30 GM OINTMENT TP SCH (09:03)
[2022-11-27 09:14] VITALS: BP 138/70
[2022-11-27 11:21] LABS: GLUCOMETER DEV NAME(LOC) BV2S.; GLUCOSE,POINT OF CARE 166 MG/DL (70-110)
[2022-11-27 16:51] LABS: GLUCOMETER DEV NAME(LOC) BV2S.; GLUCOSE,POINT OF CARE 226 MG/DL (70-110)
[2022-11-27] MEDS: FLUoxetine HCL 20 MG CAPSULE PO SCH (20:15)
[2022-11-27 20:55] VITALS: BP 137/82
[2022-11-27 21:36] LABS: GLUCOMETER DEV NAME(LOC) BV2S.; GLUCOSE,POINT OF CARE 179 MG/DL (70-110)
[2022-11-28 06:22] LABS: GLUCOMETER DEV NAME(LOC) BV2S.; GLUCOSE,POINT OF CARE 182 MG/DL (70-110)
[2022-11-28] MEDS: LEVOTHYROXINE SODIUM 50 MCG TABLET PO SCH (06:33)
[2022-11-28] MEDS: MetFORMIN HCL 500 MG TABLET PO SCH ×2 (06:33→16:54)
[2022-11-28] MEDS: INSULIN LISPRO 100 UNITS/ML SQ PRN ×4 (06:34→20:45)
[2022-11-28] MEDS: LISINOPRIL 10 MG TABLET PO SCH (08:50)
[2022-11-28] MEDS: AmLODIPine BESYLATE 5 MG TABLET PO SCH ×2 (08:50→16:54)
[2022-11-28] MEDS: DIVALPROEX SODIUM 500 MG DR TABLET PO SCH ×2 (08:50→20:30)
[2022-11-28] MEDS: HYDROCORTISONE 1% 30 GM OINTMENT TP SCH (08:50)
[2022-11-28 09:21] VITALS: BP 140/88
[2022-11-28 11:41] LABS: GLUCOMETER DEV NAME(LOC) BV2S.; GLUCOSE,POINT OF CARE 176 MG/DL (70-110)
[2022-11-28 17:17] LABS: GLUCOMETER DEV NAME(LOC) BV2S.; GLUCOSE,POINT OF CARE 173 MG/DL (70-110)
[2022-11-28] MEDS: FLUoxetine HCL 20 MG CAPSULE PO SCH (20:30)
[2022-11-28 20:40] VITALS: BP 141/72
[2022-11-28 20:51] LABS: GLUCOMETER DEV NAME(LOC) BV2S.; GLUCOSE,POINT OF CARE 284 MG/DL (70-110)
[2022-11-29 06:21] LABS: GLUCOMETER DEV NAME(LOC) BV2S.; GLUCOSE,POINT OF CARE 171 MG/DL (70-110)
[2022-11-29] MEDS: LEVOTHYROXINE SODIUM 50 MCG TABLET PO SCH (06:39)
[2022-11-29] MEDS: MetFORMIN HCL 500 MG TABLET PO SCH ×2 (06:39→16:32)
[2022-11-29] MEDS: INSULIN LISPRO 100 UNITS/ML SQ PRN ×4 (06:41→20:49)
[2022-11-29] MEDS: AmLODIPine BESYLATE 5 MG TABLET PO SCH ×2 (08:12→16:32)
[2022-11-29] MEDS: LISINOPRIL 10 MG TABLET PO SCH (08:12)
[2022-11-29] MEDS: DIVALPROEX SODIUM 500 MG DR TABLET PO SCH ×2 (08:12→20:37)
[2022-11-29] MEDS: HYDROCORTISONE 1% 30 GM OINTMENT TP SCH (08:13)
[2022-11-29 08:45] VITALS: BP 140/72
[2022-11-29 11:31] LABS: GLUCOMETER DEV NAME(LOC) BV2S.; GLUCOSE,POINT OF CARE 158 MG/DL (70-110)
[2022-11-29 16:16] LABS: GLUCOMETER DEV NAME(LOC) BV2S.; GLUCOSE,POINT OF CARE 169 MG/DL (70-110)
[2022-11-29 20:00] VITALS: BP 160/86
[2022-11-29 20:26] LABS: GLUCOMETER DEV NAME(LOC) BV2S.; GLUCOSE,POINT OF CARE 174 MG/DL (70-110)
[2022-11-29] MEDS: FLUoxetine HCL 20 MG CAPSULE PO SCH (20:37)
[2022-11-30 06:31] LABS: GLUCOMETER DEV NAME(LOC) BV2S.; GLUCOSE,POINT OF CARE 163 MG/DL (70-110)
[2022-11-30] MEDS: LEVOTHYROXINE SODIUM 50 MCG TABLET PO SCH (06:41)
[2022-11-30] MEDS: MetFORMIN HCL 500 MG TABLET PO SCH ×2 (06:41→16:28)
[2022-11-30] MEDS: INSULIN LISPRO 100 UNITS/ML SQ PRN ×4 (06:43→20:37)
[2022-11-30 08:39] VITALS: BP 146/88
[2022-11-30] MEDS: HYDROCORTISONE 1% 30 GM OINTMENT TP SCH (08:50)
[2022-11-30] MEDS: DIVALPROEX SODIUM 500 MG DR TABLET PO SCH ×2 (08:50→20:25)
[2022-11-30] MEDS: AmLODIPine BESYLATE 5 MG TABLET PO SCH ×2 (08:50→16:29)
[2022-11-30] MEDS: LISINOPRIL 10 MG TABLET PO SCH (08:50)
[2022-11-30] MEDS: CHOLECALCIFEROL (VIT D3) 5,000 [125 MCG] UNITS CAPSULE PO SCH (08:50)
[2022-11-30 11:56] LABS: GLUCOMETER DEV NAME(LOC) BV2S.; GLUCOSE,POINT OF CARE 216 MG/DL (70-110)
[2022-11-30 17:11] LABS: GLUCOMETER DEV NAME(LOC) BV2S.; GLUCOSE,POINT OF CARE 230 MG/DL (70-110)
[2022-11-30] MEDS: FLUoxetine HCL 20 MG CAPSULE PO SCH (20:25)
[2022-11-30 20:31] VITALS: BP 134/76
[2022-11-30 21:16] LABS: GLUCOMETER DEV NAME(LOC) BV2S.; GLUCOSE,POINT OF CARE 248 MG/DL (70-110)
[2022-12-01] MEDS: INSULIN LISPRO 100 UNITS/ML SQ PRN ×2 (06:24→16:27)
[2022-12-01] MEDS: LEVOTHYROXINE SODIUM 50 MCG TABLET PO SCH (06:24)
[2022-12-01] MEDS: MetFORMIN HCL 500 MG TABLET PO SCH ×2 (06:24→16:20)
[2022-12-01] MEDS: DIVALPROEX SODIUM 500 MG DR TABLET PO SCH ×2 (08:19→20:32)
[2022-12-01] MEDS: AmLODIPine BESYLATE 5 MG TABLET PO SCH ×2 (08:19→16:20)
[2022-12-01] MEDS: HYDROCORTISONE 1% 30 GM OINTMENT TP SCH (08:19)
[2022-12-01] MEDS: LISINOPRIL 10 MG TABLET PO SCH (08:19)
[2022-12-01 08:31] VITALS: BP 144/78
[2022-12-01 09:16] LABS: GLUCOMETER DEV NAME(LOC) BV2S.; GLUCOSE,POINT OF CARE 191 MG/DL (70-110)
[2022-12-01 11:30] LABS: GLUCOMETER DEV NAME(LOC) BV2S.; GLUCOSE,POINT OF CARE 197 MG/DL (70-110)
[2022-12-01 16:56] LABS: GLUCOMETER DEV NAME(LOC) BV2S.; GLUCOSE,POINT OF CARE 180 MG/DL (70-110)
[2022-12-01 20:06] VITALS: BP 155/76
[2022-12-01] MEDS: FLUoxetine HCL 20 MG CAPSULE PO SCH (20:32)
[2022-12-02 06:36] LABS: GLUCOMETER DEV NAME(LOC) BV2S.; GLUCOSE,POINT OF CARE 177 MG/DL (70-110)
[2022-12-02] MEDS: LEVOTHYROXINE SODIUM 50 MCG TABLET PO SCH (06:37)
[2022-12-02] MEDS: MetFORMIN HCL 500 MG TABLET PO SCH ×2 (06:38→16:58)
[2022-12-02] MEDS: INSULIN LISPRO 100 UNITS/ML SQ PRN ×4 (06:45→20:37)
[2022-12-02] MEDS: LISINOPRIL 10 MG TABLET PO SCH (08:28)
[2022-12-02] MEDS: DIVALPROEX SODIUM 500 MG DR TABLET PO SCH ×2 (08:28→20:11)
[2022-12-02] MEDS: AmLODIPine BESYLATE 5 MG TABLET PO SCH ×2 (08:28→16:59)
[2022-12-02 08:46] VITALS: BP 129/61
[2022-12-02] MEDS: HYDROCORTISONE 1% 30 GM OINTMENT TP SCH (09:23)
[2022-12-02 10:12] LABS: GLUCOMETER DEV NAME(LOC) POC.BV
[2022-12-02 11:25] LABS: GLUCOMETER DEV NAME(LOC) BV2S.; GLUCOSE,POINT OF CARE 230 MG/DL (70-110)
[2022-12-02 16:41] LABS: GLUCOMETER DEV NAME(LOC) BV2S.; GLUCOSE,POINT OF CARE 298 MG/DL (70-110)
[2022-12-02 20:41] LABS: GLUCOMETER DEV NAME(LOC) BV2S.; GLUCOSE,POINT OF CARE 262 MG/DL (70-110)
[2022-12-02 20:43] VITALS: BP 132/62
[2022-12-02] MEDS: FLUoxetine HCL 20 MG CAPSULE PO SCH (21:32)
[2022-12-03] MEDS: LEVOTHYROXINE SODIUM 50 MCG TABLET PO SCH (06:23)
[2022-12-03] MEDS: MetFORMIN HCL 500 MG TABLET PO SCH ×2 (06:23→16:22)
[2022-12-03] MEDS: INSULIN LISPRO 100 UNITS/ML SQ PRN ×4 (06:29→20:45)
[2022-12-03 06:51] LABS: GLUCOMETER DEV NAME(LOC) BV2S.; GLUCOSE,POINT OF CARE 182 MG/DL (70-110)
[2022-12-03] MEDS: DIVALPROEX SODIUM 500 MG DR TABLET PO SCH ×2 (08:25→20:33)
[2022-12-03] MEDS: LISINOPRIL 10 MG TABLET PO SCH (08:25)
[2022-12-03] MEDS: AmLODIPine BESYLATE 5 MG TABLET PO SCH ×2 (08:26→16:22)
[2022-12-03] MEDS: HYDROCORTISONE 1% 30 GM OINTMENT TP SCH (08:26)
[2022-12-03 08:43] VITALS: BP 114/61
[2022-12-03 11:21] LABS: GLUCOMETER DEV NAME(LOC) BV2S.; GLUCOSE,POINT OF CARE 191 MG/DL (70-110)
[2022-12-03 16:52] LABS: GLUCOMETER DEV NAME(LOC) BV2S.; GLUCOSE,POINT OF CARE 257 MG/DL (70-110)
[2022-12-03 20:31] VITALS: BP 142/73
[2022-12-03] MEDS: FLUoxetine HCL 20 MG CAPSULE PO SCH (20:33)
[2022-12-03 22:06] LABS: GLUCOMETER DEV NAME(LOC) BV2S.; GLUCOSE,POINT OF CARE 175 MG/DL (70-110)
[2022-12-04] MEDS: LEVOTHYROXINE SODIUM 50 MCG TABLET PO SCH (06:39)
[2022-12-04] MEDS: MetFORMIN HCL 500 MG TABLET PO SCH ×2 (06:39→16:25)
[2022-12-04] MEDS: INSULIN LISPRO 100 UNITS/ML SQ PRN ×4 (06:41→21:20)
[2022-12-04 06:46] LABS: GLUCOMETER DEV NAME(LOC) BV2S.; GLUCOSE,POINT OF CARE 202 MG/DL (70-110)
[2022-12-04 08:20] VITALS: BP 139/74
[2022-12-04] MEDS: LISINOPRIL 10 MG TABLET PO SCH (09:08)
[2022-12-04] MEDS: HYDROCORTISONE 1% 30 GM OINTMENT TP SCH (09:08)
[2022-12-04] MEDS: AmLODIPine BESYLATE 5 MG TABLET PO SCH ×2 (09:08→16:25)
[2022-12-04] MEDS: DIVALPROEX SODIUM 500 MG DR TABLET PO SCH ×2 (09:08→21:01)
[2022-12-04 11:46] LABS: GLUCOMETER DEV NAME(LOC) BV2S.; GLUCOSE,POINT OF CARE 190 MG/DL (70-110)
[2022-12-04 16:47] LABS: GLUCOMETER DEV NAME(LOC) BV2S.; GLUCOSE,POINT OF CARE 216 MG/DL (70-110)
[2022-12-04] MEDS: FLUoxetine HCL 20 MG CAPSULE PO SCH (21:02)
[2022-12-04] MEDS: ACETAMINOPHEN 325 MG TABLET PO PRN (21:12)
[2022-12-04 22:01] LABS: GLUCOMETER DEV NAME(LOC) BV2S.; GLUCOSE,POINT OF CARE 180 MG/DL (70-110)
[2022-12-05 06:27] LABS: GLUCOMETER DEV NAME(LOC) BV2S.; GLUCOSE,POINT OF CARE 196 MG/DL (70-110)
[2022-12-05] MEDS: INSULIN LISPRO 100 UNITS/ML SQ PRN ×4 (06:54→20:39)
[2022-12-05 07:01] VITALS: BP 133/67
[2022-12-05] MEDS: MetFORMIN HCL 500 MG TABLET PO SCH ×2 (07:01→16:04)
[2022-12-05] MEDS: LEVOTHYROXINE SODIUM 50 MCG TABLET PO SCH (07:01)
[2022-12-05 08:41] VITALS: BP 124/58
[2022-12-05] MEDS: DIVALPROEX SODIUM 500 MG DR TABLET PO SCH ×2 (09:06→20:27)
[2022-12-05] MEDS: AmLODIPine BESYLATE 5 MG TABLET PO SCH ×2 (09:06→16:04)
[2022-12-05] MEDS: HYDROCORTISONE 1% 30 GM OINTMENT TP SCH (09:06)
[2022-12-05] MEDS: LISINOPRIL 10 MG TABLET PO SCH (09:06)
[2022-12-05 11:31] LABS: GLUCOMETER DEV NAME(LOC) BV2S.; GLUCOSE,POINT OF CARE 169 MG/DL (70-110)
[2022-12-05] MEDS: ACETAMINOPHEN 325 MG TABLET PO PRN (16:04)
[2022-12-05 16:46] LABS: GLUCOMETER DEV NAME(LOC) BV2S.; GLUCOSE,POINT OF CARE 250 MG/DL (70-110)
[2022-12-05] MEDS: FLUoxetine HCL 20 MG CAPSULE PO SCH (20:27)
[2022-12-05 20:55] VITALS: BP 140/70
[2022-12-05 21:01] LABS: GLUCOMETER DEV NAME(LOC) BV2S.; GLUCOSE,POINT OF CARE 269 MG/DL (70-110)
[2022-12-06 06:21] LABS: GLUCOMETER DEV NAME(LOC) BV2S.; GLUCOSE,POINT OF CARE 242 MG/DL (70-110)
[2022-12-06] MEDS: LEVOTHYROXINE SODIUM 50 MCG TABLET PO SCH (06:46)
[2022-12-06] MEDS: MetFORMIN HCL 500 MG TABLET PO SCH ×2 (06:46→16:50)
[2022-12-06] MEDS: INSULIN LISPRO 100 UNITS/ML SQ PRN ×4 (06:48→20:24)
[2022-12-06] MEDS: AmLODIPine BESYLATE 5 MG TABLET PO SCH ×2 (08:07→16:50)
[2022-12-06] MEDS: LISINOPRIL 10 MG TABLET PO SCH (08:07)
[2022-12-06] MEDS: HYDROCORTISONE 1% 30 GM OINTMENT TP SCH (08:08)
[2022-12-06] MEDS: DIVALPROEX SODIUM 500 MG DR TABLET PO SCH ×2 (08:08→20:16)
[2022-12-06 09:40] VITALS: BP 132/62
[2022-12-06 11:37] LABS: GLUCOMETER DEV NAME(LOC) BV2S.; GLUCOSE,POINT OF CARE 255 MG/DL (70-110)
[2022-12-06 16:41] LABS: GLUCOMETER DEV NAME(LOC) BV2S.; GLUCOSE,POINT OF CARE 306 MG/DL (70-110)
[2022-12-06] MEDS: FLUoxetine HCL 20 MG CAPSULE PO SCH (20:16)
[2022-12-06 20:27] VITALS: BP 151/74
[2022-12-06 20:40] LABS: GLUCOMETER DEV NAME(LOC) BV2S.; GLUCOSE,POINT OF CARE 222 MG/DL (70-110)
[2022-12-07 06:22] LABS: GLUCOMETER DEV NAME(LOC) BV2S.; GLUCOSE,POINT OF CARE 228 MG/DL (70-110)
[2022-12-07] MEDS: MetFORMIN HCL 500 MG TABLET PO SCH ×2 (06:37→16:35)
[2022-12-07] MEDS: LEVOTHYROXINE SODIUM 50 MCG TABLET PO SCH (06:37)
[2022-12-07] MEDS: INSULIN LISPRO 100 UNITS/ML SQ PRN ×4 (06:39→20:54)
[2022-12-07 08:30] VITALS: BP 142/66
[2022-12-07] MEDS: AmLODIPine BESYLATE 5 MG TABLET PO SCH ×2 (08:55→16:35)
[2022-12-07] MEDS: HYDROCORTISONE 1% 30 GM OINTMENT TP SCH (08:55)
[2022-12-07] MEDS: LISINOPRIL 10 MG TABLET PO SCH (08:55)
[2022-12-07] MEDS: DIVALPROEX SODIUM 500 MG DR TABLET PO SCH ×2 (08:55→20:44)
[2022-12-07] MEDS: CHOLECALCIFEROL (VIT D3) 5,000 [125 MCG] UNITS CAPSULE PO SCH (08:55)
[2022-12-07 11:26] LABS: GLUCOMETER DEV NAME(LOC) BV2S.; GLUCOSE,POINT OF CARE 261 MG/DL (70-110)
[2022-12-07 16:30] VITALS: BP 134/68
[2022-12-07 17:02] LABS: GLUCOMETER DEV NAME(LOC) BV2S.; GLUCOSE,POINT OF CARE 191 MG/DL (70-110)
[2022-12-07 20:33] LABS: GLUCOMETER DEV NAME(LOC) BV2S.; GLUCOSE,POINT OF CARE 272 MG/DL (70-110)
[2022-12-07] MEDS: FLUoxetine HCL 20 MG CAPSULE PO SCH (20:44)
[2022-12-08 01:15] VITALS: BP 128/62
[2022-12-08] MEDS: MetFORMIN HCL 500 MG TABLET PO SCH ×2 (06:13→16:34)
[2022-12-08] MEDS: LEVOTHYROXINE SODIUM 50 MCG TABLET PO SCH (06:13)
[2022-12-08] MEDS: INSULIN LISPRO 100 UNITS/ML SQ PRN ×4 (06:18→21:46)
[2022-12-08 06:21] LABS: GLUCOMETER DEV NAME(LOC) BV2S.; GLUCOSE,POINT OF CARE 239 MG/DL (70-110)
[2022-12-08 08:59] VITALS: BP 107/67
[2022-12-08] MEDS: AmLODIPine BESYLATE 5 MG TABLET PO SCH ×2 (10:15→16:34)
[2022-12-08] MEDS: LISINOPRIL 10 MG TABLET PO SCH (10:15)
[2022-12-08] MEDS: DIVALPROEX SODIUM 500 MG DR TABLET PO SCH ×2 (10:15→21:46)
[2022-12-08] MEDS: HYDROCORTISONE 1% 30 GM OINTMENT TP SCH (10:15)
[2022-12-08 11:26] LABS: GLUCOMETER DEV NAME(LOC) BV2S.; GLUCOSE,POINT OF CARE 255 MG/DL (70-110)
[2022-12-08 11:42] VITALS: BP 107/67
[2022-12-08 16:20] VITALS: BP 130/76
[2022-12-08 17:11] LABS: GLUCOMETER DEV NAME(LOC) BV2S.; GLUCOSE,POINT OF CARE 212 MG/DL (70-110)
[2022-12-08] MEDS: ZOLPIDEM TARTRATE 10 MG TABLET PO PRN (21:45)
[2022-12-08] MEDS: FLUoxetine HCL 20 MG CAPSULE PO SCH (21:46)
[2022-12-08 22:21] LABS: GLUCOMETER DEV NAME(LOC) BV2S.; GLUCOSE,POINT OF CARE 267 MG/DL (70-110)
[2022-12-09 01:34] VITALS: BP 144/72
[2022-12-09 06:31] LABS: GLUCOMETER DEV NAME(LOC) BV2S.; GLUCOSE,POINT OF CARE 264 MG/DL (70-110)
[2022-12-09] MEDS: INSULIN LISPRO 100 UNITS/ML SQ PRN ×4 (06:43→20:43)
[2022-12-09] MEDS: MetFORMIN HCL 500 MG TABLET PO SCH ×2 (06:50→16:10)
[2022-12-09] MEDS: LEVOTHYROXINE SODIUM 50 MCG TABLET PO SCH (06:50)
[2022-12-09 08:51] VITALS: BP 135/87
[2022-12-09] MEDS: AmLODIPine BESYLATE 5 MG TABLET PO SCH ×2 (08:59→16:10)
[2022-12-09] MEDS: DIVALPROEX SODIUM 500 MG DR TABLET PO SCH ×2 (08:59→20:27)
[2022-12-09] MEDS: LISINOPRIL 10 MG TABLET PO SCH (08:59)
[2022-12-09] MEDS: HYDROCORTISONE 1% 30 GM OINTMENT TP SCH (09:00)
[2022-12-09] MEDS ORDERED: ARIPiprazole LAUROXIL ER SUSPENSION 882 MG/3.2 ML SYRINGE IM SCH (09:00)
[2022-12-09 11:56] LABS: GLUCOMETER DEV NAME(LOC) BV2S.; GLUCOSE,POINT OF CARE 238 MG/DL (70-110)
[2022-12-09 16:51] LABS: GLUCOMETER DEV NAME(LOC) BV2S.; GLUCOSE,POINT OF CARE 279 MG/DL (70-110)
[2022-12-09 17:19] VITALS: BP 152/76
[2022-12-09] MEDS: FLUoxetine HCL 20 MG CAPSULE PO SCH (20:27)
[2022-12-09 21:11] LABS: GLUCOMETER DEV NAME(LOC) BV2S.; GLUCOSE,POINT OF CARE 230 MG/DL (70-110)
[2022-12-10 00:50] VITALS: BP 137/76
[2022-12-10] MEDS: LEVOTHYROXINE SODIUM 50 MCG TABLET PO SCH (06:33)
[2022-12-10] MEDS: MetFORMIN HCL 500 MG TABLET PO SCH ×2 (06:34→16:38)
[2022-12-10 06:36] LABS: GLUCOMETER DEV NAME(LOC) BV2S.; GLUCOSE,POINT OF CARE 233 MG/DL (70-110)
[2022-12-10] MEDS: INSULIN LISPRO 100 UNITS/ML SQ PRN ×4 (06:36→20:24)
[2022-12-10 08:25] VITALS: BP 127/63
[2022-12-10] MEDS: LISINOPRIL 10 MG TABLET PO SCH (08:40)
[2022-12-10] MEDS: AmLODIPine BESYLATE 5 MG TABLET PO SCH ×2 (08:40→16:38)
[2022-12-10] MEDS: DIVALPROEX SODIUM 500 MG DR TABLET PO SCH ×2 (08:40→20:47)
[2022-12-10] MEDS: HYDROCORTISONE 1% 30 GM OINTMENT TP SCH (08:41)
[2022-12-10 11:31] LABS: GLUCOMETER DEV NAME(LOC) BV2S.; GLUCOSE,POINT OF CARE 188 MG/DL (70-110)
[2022-12-10 16:31] LABS: GLUCOMETER DEV NAME(LOC) BV2S.; GLUCOSE,POINT OF CARE 286 MG/DL (70-110)
[2022-12-10 16:52] VITALS: BP 131/76
[2022-12-10 20:31] LABS: GLUCOMETER DEV NAME(LOC) BV2S.; GLUCOSE,POINT OF CARE 227 MG/DL (70-110)
[2022-12-10] MEDS: FLUoxetine HCL 20 MG CAPSULE PO SCH (20:47)
[2022-12-11 00:52] VITALS: BP 128/78
[2022-12-11 06:22] LABS: GLUCOMETER DEV NAME(LOC) BV2S.; GLUCOSE,POINT OF CARE 269 MG/DL (70-110)
[2022-12-11] MEDS: MetFORMIN HCL 500 MG TABLET PO SCH ×2 (06:35→16:32)
[2022-12-11] MEDS: LEVOTHYROXINE SODIUM 50 MCG TABLET PO SCH (06:35)
[2022-12-11] MEDS: INSULIN LISPRO 100 UNITS/ML SQ PRN ×4 (06:36→20:40)
[2022-12-11 08:37] VITALS: BP 133/64
[2022-12-11] MEDS: DIVALPROEX SODIUM 500 MG DR TABLET PO SCH ×2 (08:58→20:31)
[2022-12-11] MEDS: LISINOPRIL 10 MG TABLET PO SCH (08:59)
[2022-12-11] MEDS: AmLODIPine BESYLATE 5 MG TABLET PO SCH ×2 (09:06→16:31)
[2022-12-11] MEDS: HYDROCORTISONE 1% 30 GM OINTMENT TP SCH (09:54)
[2022-12-11 11:35] LABS: GLUCOMETER DEV NAME(LOC) BV2S.; GLUCOSE,POINT OF CARE 278 MG/DL (70-110)
[2022-12-11 16:30] VITALS: BP 126/72
[2022-12-11 16:41] LABS: GLUCOMETER DEV NAME(LOC) BV2S.; GLUCOSE,POINT OF CARE 317 MG/DL (70-110)
[2022-12-11] MEDS: FLUoxetine HCL 20 MG CAPSULE PO SCH (20:31)
[2022-12-11 20:36] LABS: GLUCOMETER DEV NAME(LOC) BV2S.; GLUCOSE,POINT OF CARE 284 MG/DL (70-110)
[2022-12-12] MEDS: INSULIN LISPRO 100 UNITS/ML SQ PRN ×4 (06:27→21:15)
[2022-12-12] MEDS: LEVOTHYROXINE SODIUM 50 MCG TABLET PO SCH (06:33)
[2022-12-12] MEDS: MetFORMIN HCL 500 MG TABLET PO SCH ×2 (07:04→17:01)
[2022-12-12] MEDS: AmLODIPine BESYLATE 5 MG TABLET PO SCH ×2 (08:25→17:01)
[2022-12-12] MEDS: HYDROCORTISONE 1% 30 GM OINTMENT TP SCH (08:25)
[2022-12-12] MEDS: LISINOPRIL 10 MG TABLET PO SCH (08:25)
[2022-12-12] MEDS: DIVALPROEX SODIUM 500 MG DR TABLET PO SCH ×2 (08:25→21:14)
[2022-12-12 08:52] VITALS: BP 129/60
[2022-12-12 09:01] LABS: GLUCOMETER DEV NAME(LOC) BV2S.; GLUCOSE,POINT OF CARE 240 MG/DL (70-110)
[2022-12-12 11:41] LABS: GLUCOMETER DEV NAME(LOC) BV2S.; GLUCOSE,POINT OF CARE 249 MG/DL (70-110)
[2022-12-12 17:11] LABS: GLUCOMETER DEV NAME(LOC) BV2S.; GLUCOSE,POINT OF CARE 245 MG/DL (70-110)
[2022-12-12 20:47] VITALS: BP 140/80
[2022-12-12 20:51] LABS: GLUCOMETER DEV NAME(LOC) BV2S.; GLUCOSE,POINT OF CARE 271 MG/DL (70-110)
[2022-12-12] MEDS: FLUoxetine HCL 20 MG CAPSULE PO SCH (21:13)
[2022-12-13 06:06] LABS: GLUCOMETER DEV NAME(LOC) BV2S.; GLUCOSE,POINT OF CARE 254 MG/DL (70-110)
[2022-12-13 06:07] VITALS: BP 137/82
[2022-12-13] MEDS: MetFORMIN HCL 500 MG TABLET PO SCH ×2 (06:24→16:26)
[2022-12-13] MEDS: LEVOTHYROXINE SODIUM 50 MCG TABLET PO SCH (06:24)
[2022-12-13] MEDS: INSULIN LISPRO 100 UNITS/ML SQ PRN ×4 (06:26→20:31)
[2022-12-13] MEDS: LISINOPRIL 10 MG TABLET PO SCH (08:57)
[2022-12-13] MEDS: AmLODIPine BESYLATE 5 MG TABLET PO SCH ×2 (08:57→16:03)
[2022-12-13] MEDS: DIVALPROEX SODIUM 500 MG DR TABLET PO SCH ×2 (08:57→20:16)
[2022-12-13] MEDS: HYDROCORTISONE 1% 30 GM OINTMENT TP SCH (08:58)
[2022-12-13 11:25] LABS: GLUCOMETER DEV NAME(LOC) BV2S.; GLUCOSE,POINT OF CARE 270 MG/DL (70-110)
[2022-12-13 16:00] VITALS: BP 172/94
[2022-12-13 16:36] LABS: GLUCOMETER DEV NAME(LOC) BV2S.; GLUCOSE,POINT OF CARE 302 MG/DL (70-110)
[2022-12-13 17:30] VITALS: BP 147/84
[2022-12-13] MEDS: FLUoxetine HCL 20 MG CAPSULE PO SCH (20:16)
[2022-12-13 20:26] LABS: GLUCOMETER DEV NAME(LOC) BV2S.; GLUCOSE,POINT OF CARE 265 MG/DL (70-110)
[2022-12-14 00:36] VITALS: BP 131/79
[2022-12-14 00:57] VITALS: BP 142/76
[2022-12-14] MEDS: ACETAMINOPHEN 325 MG TABLET PO PRN (00:57)
[2022-12-14 06:21] LABS: GLUCOMETER DEV NAME(LOC) BV2S.; GLUCOSE,POINT OF CARE 247 MG/DL (70-110)
[2022-12-14] MEDS: MetFORMIN HCL 500 MG TABLET PO SCH ×2 (06:27→16:24)
[2022-12-14] MEDS: LEVOTHYROXINE SODIUM 50 MCG TABLET PO SCH (06:27)
[2022-12-14] MEDS: INSULIN LISPRO 100 UNITS/ML SQ PRN ×4 (06:29→20:39)
[2022-12-14] MEDS: CHOLECALCIFEROL (VIT D3) 5,000 [125 MCG] UNITS CAPSULE PO SCH (08:31)
[2022-12-14] MEDS: DIVALPROEX SODIUM 500 MG DR TABLET PO SCH ×2 (08:31→20:27)
[2022-12-14] MEDS: LISINOPRIL 10 MG TABLET PO SCH (08:31)
[2022-12-14] MEDS: AmLODIPine BESYLATE 5 MG TABLET PO SCH ×2 (08:31→16:24)
[2022-12-14 08:34] VITALS: BP 134/73
[2022-12-14] MEDS: HYDROCORTISONE 1% 30 GM OINTMENT TP SCH (08:44)
[2022-12-14 11:26] LABS: GLUCOMETER DEV NAME(LOC) BV2S.; GLUCOSE,POINT OF CARE 275 MG/DL (70-110)
[2022-12-14 16:36] LABS: GLUCOMETER DEV NAME(LOC) BV2S.; GLUCOSE,POINT OF CARE 307 MG/DL (70-110)
[2022-12-14 16:58] VITALS: BP 144/73
[2022-12-14 20:26] LABS: GLUCOMETER DEV NAME(LOC) BV2S.; GLUCOSE,POINT OF CARE 267 MG/DL (70-110)
[2022-12-14] MEDS: FLUoxetine HCL 20 MG CAPSULE PO SCH (20:28)
[2022-12-15 04:40] VITALS: BP 142/78
[2022-12-15] MEDS: LEVOTHYROXINE SODIUM 50 MCG TABLET PO SCH (06:30)
[2022-12-15 06:36] LABS: GLUCOMETER DEV NAME(LOC) BV2S.; GLUCOSE,POINT OF CARE 256 MG/DL (70-110)
[2022-12-15] MEDS: INSULIN LISPRO 100 UNITS/ML SQ PRN ×4 (06:51→20:35)
[2022-12-15] MEDS: MetFORMIN HCL 500 MG TABLET PO SCH ×2 (06:58→16:44)
[2022-12-15 09:30] VITALS: BP 127/66
[2022-12-15] MEDS: DIVALPROEX SODIUM 500 MG DR TABLET PO SCH ×2 (09:34→20:13)
[2022-12-15] MEDS: AmLODIPine BESYLATE 5 MG TABLET PO SCH ×2 (09:34→16:44)
[2022-12-15] MEDS: LISINOPRIL 10 MG TABLET PO SCH (09:34)
[2022-12-15] MEDS: HYDROCORTISONE 1% 30 GM OINTMENT TP SCH (09:35)
[2022-12-15 11:41] LABS: GLUCOMETER DEV NAME(LOC) BV2S.; GLUCOSE,POINT OF CARE 248 MG/DL (70-110)
[2022-12-15 16:40] VITALS: BP 132/76
[2022-12-15 17:37] LABS: GLUCOMETER DEV NAME(LOC) BV2S.; GLUCOSE,POINT OF CARE 209 MG/DL (70-110)
[2022-12-15] MEDS: FLUoxetine HCL 20 MG CAPSULE PO SCH (20:13)
[2022-12-15 20:21] LABS: GLUCOMETER DEV NAME(LOC) BV2S.; GLUCOSE,POINT OF CARE 267 MG/DL (70-110)
[2022-12-16 06:21] LABS: GLUCOMETER DEV NAME(LOC) BV2S.; GLUCOSE,POINT OF CARE 231 MG/DL (70-110)
[2022-12-16] MEDS: MetFORMIN HCL 500 MG TABLET PO SCH ×2 (06:35→16:46)
[2022-12-16] MEDS: LEVOTHYROXINE SODIUM 50 MCG TABLET PO SCH (06:35)
[2022-12-16] MEDS: INSULIN LISPRO 100 UNITS/ML SQ PRN ×4 (06:36→20:45)
[2022-12-16] MEDS: DIVALPROEX SODIUM 500 MG DR TABLET PO SCH ×2 (08:41→20:29)
[2022-12-16] MEDS: LISINOPRIL 10 MG TABLET PO SCH (08:41)
[2022-12-16] MEDS: AmLODIPine BESYLATE 5 MG TABLET PO SCH ×2 (08:41→16:46)
[2022-12-16] MEDS: HYDROCORTISONE 1% 30 GM OINTMENT TP SCH (08:41)
[2022-12-16 08:56] VITALS: BP 129/73
[2022-12-16 11:16] LABS: GLUCOMETER DEV NAME(LOC) BV2S.; GLUCOSE,POINT OF CARE 206 MG/DL (70-110)
[2022-12-16 16:41] LABS: GLUCOMETER DEV NAME(LOC) BV2S.; GLUCOSE,POINT OF CARE 397 MG/DL (70-110)
[2022-12-16 16:46] VITALS: BP 125/62
[2022-12-16 20:06] VITALS: BP 129/66
[2022-12-16] MEDS: FLUoxetine HCL 20 MG CAPSULE PO SCH (20:29)
[2022-12-16 20:36] LABS: GLUCOMETER DEV NAME(LOC) BV2S.; GLUCOSE,POINT OF CARE 307 MG/DL (70-110)
[2022-12-17 06:16] LABS: GLUCOMETER DEV NAME(LOC) BV2S.; GLUCOSE,POINT OF CARE 255 MG/DL (70-110)
[2022-12-17] MEDS: LEVOTHYROXINE SODIUM 50 MCG TABLET PO SCH (06:18)
[2022-12-17] MEDS: INSULIN LISPRO 100 UNITS/ML SQ PRN ×4 (06:46→20:59)
[2022-12-17] MEDS: MetFORMIN HCL 500 MG TABLET PO SCH ×2 (06:47→17:00)
[2022-12-17 08:30] VITALS: BP 128/62
[2022-12-17] MEDS: AmLODIPine BESYLATE 5 MG TABLET PO SCH ×2 (09:16→17:00)
[2022-12-17] MEDS: HYDROCORTISONE 1% 30 GM OINTMENT TP SCH (09:16)
[2022-12-17] MEDS: DIVALPROEX SODIUM 500 MG DR TABLET PO SCH ×2 (09:16→21:35)
[2022-12-17] MEDS: LISINOPRIL 10 MG TABLET PO SCH (09:16)
[2022-12-17 11:11] LABS: GLUCOMETER DEV NAME(LOC) BV2S.; GLUCOSE,POINT OF CARE 285 MG/DL (70-110)
[2022-12-17 16:40] LABS: GLUCOMETER DEV NAME(LOC) BV2S.; GLUCOSE,POINT OF CARE 251 MG/DL (70-110)
[2022-12-17 20:31] VITALS: BP 142/72
[2022-12-17] MEDS: FLUoxetine HCL 20 MG CAPSULE PO SCH (21:35)
[2022-12-18 04:31] LABS: GLUCOMETER DEV NAME(LOC) BV2S.; GLUCOSE,POINT OF CARE 192 MG/DL (70-110)
[2022-12-18 06:21] LABS: GLUCOMETER DEV NAME(LOC) BV2S.; GLUCOSE,POINT OF CARE 193 MG/DL (70-110)
[2022-12-18] MEDS: MetFORMIN HCL 500 MG TABLET PO SCH ×2 (06:42→16:34)
[2022-12-18] MEDS: LEVOTHYROXINE SODIUM 50 MCG TABLET PO SCH (06:42)
[2022-12-18] MEDS: INSULIN LISPRO 100 UNITS/ML SQ PRN ×3 (06:44→16:38)
[2022-12-18 08:39] VITALS: BP 122/66
[2022-12-18] MEDS: AmLODIPine BESYLATE 5 MG TABLET PO SCH ×2 (08:55→16:34)
[2022-12-18] MEDS: LISINOPRIL 10 MG TABLET PO SCH (08:55)
[2022-12-18] MEDS: DIVALPROEX SODIUM 500 MG DR TABLET PO SCH (08:55)
[2022-12-18] MEDS: HYDROCORTISONE 1% 30 GM OINTMENT TP SCH (09:00)
[2022-12-18] MEDS ORDERED: ARIP882S2 IM (09:19)
[2022-12-18] MEDS ORDERED: METF-1211 PO (09:19)
[2022-12-18] MEDS ORDERED: LISI-893 PO (09:19)
[2022-12-18] MEDS ORDERED: AMLO-257 PO (09:19)
[2022-12-18] MEDS ORDERED: FLUO20CA36 PO (09:19)
[2022-12-18] MEDS ORDERED: LEVO50 PO (09:19)
[2022-12-18] MEDS ORDERED: DIVA-112 PO (09:19)
[2022-12-18 16:32] LABS: GLUCOMETER DEV NAME(LOC) BV2S.; GLUCOSE,POINT OF CARE 187 MG/DL (70-110)
[2022-12-18 16:35] VITALS: BP 137/85
== END 2022-12-18 17:45 | disposition home or self-care (01) | DRG 885 ==
LOC: EMS 12:46 → B2S 18:01
PROVIDERS: ADMIT Psychiatry & Neurology Psychiatry; ATTEND Psychiatry & Neurology Psychiatry
DX: F20.0 Paranoid schizophrenia (principal); E11.65 Type 2 diabetes mellitus with hyperglycemia; I10 Essential (primary) hypertension; F41.9 Anxiety disorder, unspecified; F10.10 Alcohol abuse, uncomplicated; E03.9 Hypothyroidism, unspecified; K52.9 Noninfective gastroenteritis and colitis, unspecified; Z20.822 Contact with and (suspected) exposure to COVID-19; F19.10 Other psychoactive substance abuse, uncomplicated; E78.00 Pure hypercholesterolemia, unspecified; Z79.84 Long term (current) use of oral hypoglycemic drugs; Z88.7 Allergy status to serum and vaccine; Z79.899 Other long term (current) drug therapy; Z81.8 Family history of other mental and behavioral disorders; Z87.891 Personal history of nicotine dependence
CPT/HCPCS: 70450; 80053; 80164; 82962; 85025; 87081; 99285; G0480; Q9967

== ENCOUNTER 2023-03-18 21:12 | Inpatient (IN) | payer MEDICARE ==
[~2023-03-18] VITALS: Ht 167.6 cm; Wt 87.0 kg
[~2023-03-18 21:12] MED LIST changes: +DIVA-112 PO
[2023-03-18] MEDS ORDERED: SODIUM CHLORIDE 0.9% 2,000 ML IV ONE (21:30)
[2023-03-18] MEDS ORDERED: INSULIN REGULAR, HUMAN 100 UNITS/ML IVP ONE ×3 (21:30→23:45)
[2023-03-18 21:36] LABS: GLUCOMETER DEV NAME(LOC) ER.6; GLUCOSE,POINT OF CARE > 600 MG/DL (70-110)
[2023-03-18 22:00] LABS: ABG BASE EXCESS -6.5 mmol/L (-2.0-3.0); ABG CARBOXYHEMOGLOBIN 0.2 % (0.0-1.5); ABG HCO3 20.1 mmol/L (22.0-26.0); ABG METHEMOGLOBIN 0.3 % (0.0-1.5); ABG OXYGEN CONTENT 15.3 mL/dL (15.0-23.0); ABG OXYGEN SATURATION 98.3 % (95.0-98.0); ABG OXYHEMOGLOBIN 97.8 % (94.0-100.0); ABG PCO2 32 mmHg (35-45); ABG PH 7.385 (7.35-7.450); SITE, BLOOD GAS RT RADIAL; SOURCE, BLOOD GAS ARTERIAL; TEMPERATURE, FAHRENHEIT, BG 102.6 FAHREN (96.0-98.6)
[2023-03-18] MEDS ORDERED: CefTRIAXone 1 GM/DEXTROSE 50 ML IV ONE (22:00)
[2023-03-18] MEDS ORDERED: SODIUM CHLORIDE 0.9% 1,000 ML IV ONE (22:00)
[2023-03-18 22:01] LABS: ALLEN TEST, BLOOD GAS POS; O2 DEVICE,BLOOD GAS NC (ROOM AIR)
[2023-03-18 22:08] LABS: APPEARANCE,URINE CLEAR (CLEAR); BILIRUBIN,URINE NEGATIVE (NEGATIVE); COLOR,URINE LIGHT YELLOW (YELLOW); GLUCOSE, URINE (UA) >=1000 mg/dL (NEGATIVE); KETONES,URINE NEGATIVE (NEGATIVE); LEUKOCYTE ESTERASE ,URINE SMALL (NEGATIVE); NITRATE,URINE NEGATIVE (NEGATIVE); OCCULT BLOOD,URINE MODERATE (NEGATIVE); PROTEIN,URINE 100-200,SEE CONFIRM mg/dL (NEGATIVE); SPECIFIC GRAVITIY, URINE 1.018 (1.003-1.030); UROBILINOGEN,URINE <=1.0 mg/dL (<=1.0)
[2023-03-18 22:15] LABS: BASOPHILS % (AUTO) 0.7 % (0.0-2.0); EOSINOPHILS % (AUTO) 0.1 % (1.0-6.0); HEMATOCRIT 32.6 % (36-46); HEMOGLOBIN 10.2 g/dL (12.0-16.0); LYMPHOCYTES # (AUTO) 0.2 K/uL (1.0-4.8); LYMPHOCYTES % (AUTO) 0.8 % (22.0-44.0); MEAN CORPUSCULAR HEMOGLOBIN 25.7 pg (26.0-34.0); MEAN CORPUSCULAR HGB CONC 31.1 G/dL (31.0-37.0); MEAN CORPUSCULAR VOLUME 83 fL (80-100); MONOCYTES # (AUTO) 0.8 K/uL (0.1-1.0); MONOCYTES % (AUTO) 4.1 % (2.0-9.0); NEUTROPHILS # (AUTO) 18.2 K/uL (1.8-7.7); PLATELET COUNT (AUTO) 267 K/uL (150-450); RED BLOOD CELL COUNT(AUTO) 3.95 MIL/uL (4.00-5.20); RED CELL DISTRIBUTION WIDTH 15.6 % (11.5-14.5); WHITE BLOOD COUNT (AUTO) 19.3 K/uL (4.5-11.0)
[2023-03-18 22:24] LABS: NEUTROPHILS % (AUTO) 94.3 % (40.0-70.0)
[2023-03-18 22:27] LABS: COVID AG,FIA SOURCE NASOPHARYNGEAL
[2023-03-18 22:28] LABS: B-TYPE NATRIURETIC PEPTIDE 201 pg/mL (0-100)
[2023-03-18 22:29] LABS: SULFOSALICYLIC ACID,URINE 3+ (Negative)
[2023-03-18 22:31] LABS: BACTERIA,URINE None Seen /HPF (None Seen); RBC,URINE 0-2 /HPF (0-2)
[2023-03-18 22:31] LABS: INR 1.3 (0.9-1.1)
[2023-03-18 22:37] LABS: ALCOHOL, URINE DRUG SCREEN NEGATIVE (NEGATIVE); AMPHET/METH SCREEN,URINE NEGATIVE (NEGATIVE); BARBITURATE SCREEN, URINE NEGATIVE (NEGATIVE); BENZODIAZEPINES SCREEN,URINE NEGATIVE (NEGATIVE); CANNABINOID SCREEN,URINE NEGATIVE (NEGATIVE); COCAINE SCREEN,URINE NEGATIVE (NEGATIVE); METHADONE SCREEN, URINE NEGATIVE (NEGATIVE); OPIATE SCREEN,URINE NEGATIVE (NEGATIVE); PHENCYCLIDINE SCREEN,URINE NEGATIVE (NEGATIVE)
[2023-03-18 22:39] LABS: ALCOHOL, BLOOD (SERUM) < 3 mg/dL (0-10)
[2023-03-18 22:40] LABS: TROPONIN I-HIGH SENSITIVITY 7 ng/L (<51)
[2023-03-18 22:43] LABS: ALANINE AMINOTRANSFERASE 29 U/L (12-78); ALKALINE PHOSPHATASE 101 U/L (46-116); ANION GAP 17 mmol/L (8-16); ASPARTATE AMINOTRANSFERASE 76 U/L (15-37); BILIRUBIN,TOTAL 0.5 mg/dL (0.1-1.0); CALCIUM, TOTAL 8.6 mg/dL (8.8-10.5); CARBON DIOXIDE 16 mmol/L (22-29); CHLORIDE 78 mmol/L (98-107); GLOMERULAR FILTR. RATE CALC 19 mL/min (>60); LIPASE < 10 U/L (16-77); POTASSIUM 4.5 mmol/L (3.5-5.1); TOTAL PROTEIN, SERUM 6.5 g/dL (6.4-8.2); UREA NITROGEN, BLOOD 40 mg/dL (7-18)
[2023-03-18] MEDS ORDERED: ACETAMINOPHEN 500 MG TABLET PO ONE (22:45)
[2023-03-18] MEDS ORDERED: FURO20TA4 PO (22:49)
[2023-03-18] MEDS ORDERED: ATEN-72 PO (22:49)
[2023-03-18] MEDS ORDERED: FENO160T75 PO (22:49)
[2023-03-18] MEDS ORDERED: HYDR25TA84 PO (22:49)
[2023-03-18 22:54] LABS: SARS-COV2 (COVID) ANTIGEN,FIA Negative (Negative)
[2023-03-18 22:57] LABS: GLUCOSE,RANDOM 817 mg/dL (70-110); LACTIC ACID 3.3 mmol/L (0.4-2.0); SODIUM SERUM 111 mmol/L (136-145)
[2023-03-18] MEDS ORDERED: SODIUM CHLORIDE 0.45% 1,000 ML IV PRN ×2 (23:15→23:45)
[2023-03-18] MEDS ORDERED: DEXTROSE 50%-WATER 25 GM/50 ML SYRINGE IVP PRN ×2 (23:15→23:45)
[2023-03-18] MEDS ORDERED: INSULIN REGULAR, HUMAN 100 UNITS/ML IVP PRN ×2 (23:15→23:45)
[2023-03-18] MEDS ORDERED: DEXTROSE 5%-0.45% SODIUM CHL 1,000 ML IV PRN ×2 (23:15→23:45)
[2023-03-18] MEDS ORDERED: SODIUM CHLORIDE 0.9% 1,000 ML IV SCH ×2 (23:15→23:45)
[2023-03-18] MEDS ORDERED: POTASSIUM CHL 20 MEQ/0.45% NS 1,000 ML IV PRN ×2 (23:15→23:45)
[2023-03-18] MEDS ORDERED: POTASSIUM CHLORIDE 40 MEQ in SODIUM CHLORIDE 0.45% 1,000 ML IV PRN ×2 (23:15→23:45)
[2023-03-18] MEDS ORDERED: INSULIN REGULAR, HUMAN 100 UNITS in SODIUM CHLORIDE 0.9% 99 ML IV PRN ×2 (23:15)
[2023-03-18 23:21] LABS: GLUCOMETER DEV NAME(LOC) ER.6; GLUCOSE,POINT OF CARE > 600 MG/DL (70-110)
[2023-03-18] MEDS ORDERED: NOREPINEPHRINE 8 MG/0.9 % NACL 250 ML IV PRN (23:45)
[2023-03-18] MEDS ORDERED: ONDANSETRON HCL 4 MG/2 ML VIAL IVP PRN (23:45)
[2023-03-18] MEDS ORDERED: ACETAMINOPHEN 325 MG TABLET PO PRN (23:45)
[2023-03-19] VITALS: BP 108/60; PULSE 67; PULSE 68; RESP 12; TEMP 98.8
[2023-03-19 02:41] LABS: CALCIUM, TOTAL 7.7 mg/dL (8.8-10.5); CREATININE 2.5 mg/dL (0.60-1.30); POTASSIUM 3.4 mmol/L (3.5-5.1)
[2023-03-19] MEDS ORDERED: PHENYLEPHRINE 200 MG/D5%-WATER 250 ML IV PRN (03:00)
[2023-03-19 04:00] VITALS: BP 122/67; PULSE 65; RESP 18; TEMP 98.1
[2023-03-19] MEDS: PIPERACILLIN SODIUM/TAZOBACTAM 2.25 GM in DEXTROSE 5%-WATER 50 ML IV SCH ×4 (04:23→21:05)
[2023-03-19] MEDS: LEVOTHYROXINE SODIUM 50 MCG TABLET PO SCH (04:24)
[2023-03-19 05:06] LABS: GLUCOSE,POINT OF CARE 501 MG/DL (70-110)
[2023-03-19 05:06] LABS: GLUCOSE,POINT OF CARE 392 MG/DL (70-110)
[2023-03-19 05:11] LABS: GLUCOSE,POINT OF CARE 386 MG/DL (70-110)
[2023-03-19 06:16] LABS: GLUCOSE,POINT OF CARE 308 MG/DL (70-110)
[2023-03-19 06:31] LABS: ALBUMIN 1.6 g/dL (3.4-5.0); BILIRUBIN,TOTAL 0.1 mg/dL (0.1-1.0); CALCIUM, TOTAL 7.9 mg/dL (8.8-10.5); CREATININE 2.34 mg/dL (0.60-1.30); MAGNESIUM 2.2 mg/dL (1.80-2.40); PHOSPHORUS 5.7 mg/dL (2.5-4.9); POTASSIUM 3.7 mmol/L (3.5-5.1); TOTAL PROTEIN, SERUM 5.7 g/dL (6.4-8.2)
[2023-03-19 07:11] LABS: GLUCOSE,POINT OF CARE 311 MG/DL (70-110)
[2023-03-19] MEDS: DOCUSATE SODIUM 100 MG CAPSULE PO SCH ×2 (07:42→20:33)
[2023-03-19] MEDS: FENOFIBRATE 160 MG TABLET PO SCH (07:42)
[2023-03-19] MEDS: DIVALPROEX SODIUM 500 MG DR TABLET PO SCH ×2 (07:42→21:04)
[2023-03-19 08:01] VITALS: BP 144/51; PULSE 89; PULSE 93; RESP 39; TEMP 103.2
[2023-03-19] MEDS: INSULIN REGULAR, HUMAN 100 UNITS in SODIUM CHLORIDE 0.9% 99 ML IV PRN ×8 (08:05→12:19)
[2023-03-19 08:21] LABS: GLUCOSE,POINT OF CARE 228 MG/DL (70-110)
[2023-03-19 09:51] LABS: GLUCOSE,POINT OF CARE 164 MG/DL (70-110)
[2023-03-19] MEDS ORDERED: MEBROFENIN TC99M/MCL ISOTOPE 1 EA INJ INJ ONE (10:50)
[2023-03-19 12:01] VITALS: BP 126/40; PULSE 69; PULSE 89; RESP 34; TEMP 97.8
[2023-03-19 12:29] LABS: BASOPHILS % (AUTO) 0.2 % (0.0-2.0); EOSINOPHILS % (AUTO) 0.7 % (1.0-6.0); HEMATOCRIT 31.3 % (36-46); HEMOGLOBIN 9.9 g/dL (12.0-16.0); LYMPHOCYTES # (AUTO) 0.4 K/uL (1.0-4.8); LYMPHOCYTES % (AUTO) 1.9 % (22.0-44.0); MEAN CORPUSCULAR HEMOGLOBIN 26.6 pg (26.0-34.0); MEAN CORPUSCULAR HGB CONC 31.5 G/dL (31.0-37.0); MEAN CORPUSCULAR VOLUME 84 fL (80-100); MONOCYTES # (AUTO) 0.7 K/uL (0.1-1.0); MONOCYTES % (AUTO) 3.2 % (2.0-9.0); NEUTROPHILS # (AUTO) 21.4 K/uL (1.8-7.7); PLATELET COUNT (AUTO) 291 K/uL (150-450); RED BLOOD CELL COUNT(AUTO) 3.71 MIL/uL (4.00-5.20); WHITE BLOOD COUNT (AUTO) 22.8 K/uL (4.5-11.0)
[2023-03-19 13:29] LABS: CALCIUM, TOTAL 8.2 mg/dL (8.8-10.5); CREATININE 2.33 mg/dL (0.60-1.30); POTASSIUM 4.2 mmol/L (3.5-5.1)
[2023-03-19] MEDS ORDERED: SODIUM CHLORIDE 0.9% 500 ML IV ONE (14:02)
[2023-03-19] MEDS ORDERED: DEXTROSE 50%-WATER 25 GM/50 ML SYRINGE IVP PRN (14:15)
[2023-03-19 15:16] LABS: GLUCOSE,POINT OF CARE 83 MG/DL (70-110)
[2023-03-19 15:16] LABS: GLUCOSE,POINT OF CARE 150 MG/DL (70-110)
[2023-03-19 15:16] LABS: GLUCOSE,POINT OF CARE 155 MG/DL (70-110)
[2023-03-19 15:16] LABS: GLUCOSE,POINT OF CARE 94 MG/DL (70-110)
[2023-03-19] MEDS ORDERED: *CLINICAL-LEVOFLOXACIN IVPB DOSING CLINICAL ONE (15:30)
[2023-03-19] MEDS: SODIUM CHLORIDE 0.9% 1,000 ML IV SCH (15:32)
[2023-03-19 16:01] VITALS: BP 124/57; PULSE 69; PULSE 89; RESP 26; TEMP 97.5
[2023-03-19] MEDS: LEVOFLOXACIN 750 MG/D5% WATER 150 ML IV SCH (16:33)
[2023-03-19] MEDS: INSULIN LISPRO 100 UNITS/ML SQ PRN ×2 (17:06→21:58)
[2023-03-19 20:00] VITALS: BP 115/53; PULSE 72; RESP 18; TEMP 97.9
[2023-03-19] MEDS ORDERED: INSULIN GLARGINE,HUM.REC.ANLOG 100 UNITS/ML SQ SCH (21:00)
[2023-03-19] MEDS: BUDESONIDE 0.5 MG/2 ML NEB SOLUTION NEB SCH (21:00)
[2023-03-19 21:01] LABS: GLUCOSE,POINT OF CARE 298 MG/DL (70-110)
[2023-03-20] VITALS (14 sets, daily range): BP systolic 102–149; BP diastolic 46–75; PULSE 66–81; RESP 25–40; TEMP 97.9–99.6; O2SAT 96–100
[2023-03-20] MEDS: HEPARIN SODIUM,PORCINE 5,000 UNITS/ML VIAL SQ SCH ×3 (00:22→16:46)
[2023-03-20] MEDS: INSULIN LISPRO 100 UNITS/ML SQ PRN ×5 (00:31→21:06)
[2023-03-20 01:16] LABS: GLUCOSE,POINT OF CARE 239 MG/DL (70-110)
[2023-03-20 01:16] LABS: GLUCOSE,POINT OF CARE 294 MG/DL (70-110)
[2023-03-20] MEDS: SODIUM CHLORIDE 0.9% 1,000 ML IV SCH ×2 (04:32→20:32)
[2023-03-20] MEDS: PIPERACILLIN SODIUM/TAZOBACTAM 2.25 GM in DEXTROSE 5%-WATER 50 ML IV SCH ×4 (04:33→21:04)
[2023-03-20] MEDS: LEVOTHYROXINE SODIUM 50 MCG TABLET PO SCH (05:06)
[2023-03-20] MEDS: DOCUSATE SODIUM 100 MG CAPSULE PO SCH ×2 (09:00→20:22)
[2023-03-20] MEDS: DIVALPROEX SODIUM 500 MG DR TABLET PO SCH ×2 (09:01→20:32)
[2023-03-20] MEDS: FENOFIBRATE 160 MG TABLET PO SCH (09:02)
[2023-03-20 09:13] LABS: BASOPHILS % (AUTO) 0.2 % (0.0-2.0); EOSINOPHILS % (AUTO) 0.1 % (1.0-6.0); HEMATOCRIT 26.2 % (36-46); HEMOGLOBIN 8.5 g/dL (12.0-16.0); LYMPHOCYTES # (AUTO) 0.3 K/uL (1.0-4.8); LYMPHOCYTES % (AUTO) 1.7 % (22.0-44.0); MEAN CORPUSCULAR HEMOGLOBIN 26.7 pg (26.0-34.0); MEAN CORPUSCULAR HGB CONC 32.5 G/dL (31.0-37.0); MEAN CORPUSCULAR VOLUME 82 fL (80-100); MONOCYTES # (AUTO) 0.8 K/uL (0.1-1.0); MONOCYTES % (AUTO) 5.2 % (2.0-9.0); NEUTROPHILS # (AUTO) 14.2 K/uL (1.8-7.7); PLATELET COUNT (AUTO) 227 K/uL (150-450); RED BLOOD CELL COUNT(AUTO) 3.19 MIL/uL (4.00-5.20); RED CELL DISTRIBUTION WIDTH 15.7 % (11.5-14.5); WHITE BLOOD COUNT (AUTO) 15.3 K/uL (4.5-11.0)
[2023-03-20 09:16] LABS: NEUTROPHILS % (AUTO) 92.8 % (40.0-70.0)
[2023-03-20 09:26] LABS: GLUCOSE,POINT OF CARE 174 MG/DL (70-110)
[2023-03-20 09:29] LABS: ALBUMIN 1.3 g/dL (3.4-5.0); BILIRUBIN,TOTAL 0.2 mg/dL (0.1-1.0); CALCIUM, TOTAL 8.1 mg/dL (8.8-10.5); CREATININE 2.21 mg/dL (0.60-1.30); POTASSIUM 3.5 mmol/L (3.5-5.1); TOTAL PROTEIN, SERUM 5.4 g/dL (6.4-8.2)
[2023-03-20] MEDS: BUDESONIDE 0.5 MG/2 ML NEB SOLUTION NEB SCH ×2 (09:29→19:53)
[2023-03-20] MEDS ORDERED: PENTETATE DTPA TC99M/MCL ISOTOPE 1 EA INJ INJ ONE (10:10)
[2023-03-20] MEDS ORDERED: SODIUM CHLORIDE 3% IV SCH ×2 (10:30)
[2023-03-20] MEDS ORDERED: WATER FOR INJECTION STERILE IV SCH ×2 (10:30)
[2023-03-20] MEDS ORDERED: MAA ALBUMIN AGGREGATED TC99M/UD<10MCL ISOTOPE 1 EA INJ INJ ONE (10:50)
[2023-03-20] MEDS ORDERED: IOHEXOL 9 MG/ML 500 ML BOTTLE ONE (13:13)
[2023-03-20] MEDS ORDERED: IPRATROPIUM BROMIDE 0.5 MG/2.5 ML NEB SOLUTION NEB PRN (13:30)
[2023-03-20] MEDS ORDERED: ALBUTEROL SULFATE 2.5 MG/0.5 ML NEB SOLUTION NEB PRN (13:30)
[2023-03-20 13:36] LABS: GLUCOSE,POINT OF CARE 171 MG/DL (70-110)
[2023-03-20] MEDS: IPRATROPIUM BROMIDE 0.5 MG/2.5 ML NEB SOLUTION NEB SCH ×2 (14:00→19:53)
[2023-03-20] MEDS: ALBUTEROL SULFATE 2.5 MG/0.5 ML NEB SOLUTION NEB SCH ×2 (14:00→19:53)
[2023-03-20 14:48] LABS: CALCIUM, TOTAL 7.8 mg/dL (8.8-10.5); CREATININE 2.09 mg/dL (0.60-1.30); POTASSIUM 3.6 mmol/L (3.5-5.1)
[2023-03-20] MEDS: BENZONATATE 100 MG CAPSULE PO SCH ×2 (16:47→20:32)
[2023-03-20] MEDS: MethylPREDNISolone SOD SUCC 125 MG/2 ML VIAL IVP SCH (18:34)
[2023-03-20] MEDS ORDERED: SODIUM CHLORIDE 0.9% 500 ML IV ONE (20:24)
[2023-03-20] MEDS: GuaiFENesin SR 600 MG ER TABLET PO SCH (20:32)
[2023-03-20] MEDS: INSULIN GLARGINE,HUM.REC.ANLOG 100 UNITS/ML SQ SCH (21:06)
[2023-03-20 21:16] LABS: GLUCOSE,POINT OF CARE 181 MG/DL (70-110)
[2023-03-20 21:57] LABS: GLUCOSE,POINT OF CARE 223 MG/DL (70-110)
[2023-03-21] VITALS (12 sets, daily range): BP systolic 117–150; BP diastolic 56–72; PULSE 66–88; RESP 12–24; TEMP 97.9–99.1; O2SAT 97–99
[2023-03-21] MEDS: MethylPREDNISolone SOD SUCC 125 MG/2 ML VIAL IVP SCH ×4 (00:38→18:07)
[2023-03-21] MEDS: HEPARIN SODIUM,PORCINE 5,000 UNITS/ML VIAL SQ SCH ×3 (00:39→16:00)
[2023-03-21] MEDS: INSULIN LISPRO 100 UNITS/ML SQ PRN ×4 (00:56→21:50)
[2023-03-21] MEDS: IPRATROPIUM BROMIDE 0.5 MG/2.5 ML NEB SOLUTION NEB SCH ×4 (01:54→19:57)
[2023-03-21] MEDS: ALBUTEROL SULFATE 2.5 MG/0.5 ML NEB SOLUTION NEB SCH ×4 (01:54→19:57)
[2023-03-21] MEDS: PIPERACILLIN SODIUM/TAZOBACTAM 2.25 GM in DEXTROSE 5%-WATER 50 ML IV SCH ×4 (03:46→22:11)
[2023-03-21 05:16] LABS: GLUCOSE,POINT OF CARE 173 MG/DL (70-110)
[2023-03-21 05:38] LABS: BASOPHILS % (AUTO) 0.1 % (0.0-2.0); EOSINOPHILS % (AUTO) 0 % (1.0-6.0); HEMATOCRIT 27.4 % (36-46); HEMOGLOBIN 8.9 g/dL (12.0-16.0); LYMPHOCYTES # (AUTO) 0.2 K/uL (1.0-4.8); LYMPHOCYTES % (AUTO) 2.2 % (22.0-44.0); MEAN CORPUSCULAR HGB CONC 32.6 G/dL (31.0-37.0); MEAN CORPUSCULAR VOLUME 83 fL (80-100); MONOCYTES # (AUTO) 0.3 K/uL (0.1-1.0); MONOCYTES % (AUTO) 3.2 % (2.0-9.0); NEUTROPHILS # (AUTO) 10.1 K/uL (1.8-7.7); PLATELET COUNT (AUTO) 215 K/uL (150-450); RED CELL DISTRIBUTION WIDTH 16.3 % (11.5-14.5); WHITE BLOOD COUNT (AUTO) 10.7 K/uL (4.5-11.0)
[2023-03-21 05:42] LABS: NEUTROPHILS % (AUTO) 94.5 % (40.0-70.0)
[2023-03-21 05:47] LABS: ANION GAP 14 mmol/L (8-16); CALCIUM, TOTAL 8.6 mg/dL (8.8-10.5); CARBON DIOXIDE 18 mmol/L (22-29); CHLORIDE 97 mmol/L (98-107); CREATININE 1.86 mg/dL (0.60-1.30); GLOMERULAR FILTR. RATE CALC 28 mL/min (>60); GLUCOSE,RANDOM 218 mg/dL (70-110); SODIUM SERUM 129 mmol/L (136-145); UREA NITROGEN, BLOOD 43 mg/dL (7-18)
[2023-03-21] MEDS: LEVOTHYROXINE SODIUM 50 MCG TABLET PO SCH (06:00)
[2023-03-21] MEDS: SODIUM CHLORIDE 0.9% 1,000 ML IV SCH (06:00)
[2023-03-21 06:01] LABS: GLUCOSE,POINT OF CARE 208 MG/DL (70-110)
[2023-03-21] MEDS: BUDESONIDE 0.5 MG/2 ML NEB SOLUTION NEB SCH ×2 (07:09→19:57)
[2023-03-21] MEDS: DOCUSATE SODIUM 100 MG CAPSULE PO SCH ×2 (07:26→21:00)
[2023-03-21] MEDS: GuaiFENesin SR 600 MG ER TABLET PO SCH ×2 (09:01→21:38)
[2023-03-21] MEDS: BENZONATATE 100 MG CAPSULE PO SCH ×3 (09:01→21:38)
[2023-03-21] MEDS: DIVALPROEX SODIUM 500 MG DR TABLET PO SCH ×2 (09:01→22:11)
[2023-03-21] MEDS: FENOFIBRATE 160 MG TABLET PO SCH (09:01)
[2023-03-21] MEDS: INSULIN GLARGINE,HUM.REC.ANLOG 100 UNITS/ML SQ SCH ×2 (09:02→21:49)
[2023-03-21] MEDS ORDERED: CITRIC ACID/SODIUM CITRATE 30 ML SOLUTION UDCUP PO ONE (09:30)
[2023-03-21] MEDS: CITRIC ACID/SODIUM CITRATE 30 ML SOLUTION UDCUP PO SCH ×2 (12:45→22:11)
[2023-03-21] MEDS ORDERED: SODIUM CHLORIDE 0.9% 250 ML IV ONE (12:53)
[2023-03-21 15:41] LABS: GLUCOSE,POINT OF CARE 242 MG/DL (70-110)
[2023-03-21] MEDS: LEVOFLOXACIN 750 MG/D5% WATER 150 ML IV SCH (18:07)
[2023-03-21 20:26] LABS: GLUCOSE,POINT OF CARE 354 MG/DL (70-110)
[2023-03-21] MEDS ORDERED: INSULIN GLARGINE,HUM.REC.ANLOG 100 UNITS/ML SQ STA (22:37)
[2023-03-22] VITALS (9 sets, daily range): BP systolic 116–154; BP diastolic 53–78; PULSE 63–86; RESP 17–22; TEMP 97.5–98; O2SAT 86–91
[2023-03-22 00:16] LABS: GLUCOMETER DEV NAME(LOC) 5S.2C; GLUCOSE,POINT OF CARE 427 MG/DL (70-110)
[2023-03-22] MEDS: MethylPREDNISolone SOD SUCC 125 MG/2 ML VIAL IVP SCH ×4 (00:18→17:24)
[2023-03-22] MEDS: ALBUTEROL SULFATE 2.5 MG/0.5 ML NEB SOLUTION NEB SCH ×4 (02:13→20:00)
[2023-03-22] MEDS: IPRATROPIUM BROMIDE 0.5 MG/2.5 ML NEB SOLUTION NEB SCH ×4 (02:13→20:00)
[2023-03-22] MEDS: PIPERACILLIN SODIUM/TAZOBACTAM 2.25 GM in DEXTROSE 5%-WATER 50 ML IV SCH ×2 (04:38→09:26)
[2023-03-22] MEDS: LEVOTHYROXINE SODIUM 50 MCG TABLET PO SCH (05:54)
[2023-03-22] MEDS: INSULIN LISPRO 100 UNITS/ML SQ PRN ×2 (06:05→11:43)
[2023-03-22 06:56] LABS: GLUCOMETER DEV NAME(LOC) 5S.1B; GLUCOSE,POINT OF CARE 386 MG/DL (70-110)
[2023-03-22] MEDS: DOCUSATE SODIUM 100 MG CAPSULE PO SCH ×2 (09:00→21:36)
[2023-03-22] MEDS: BUDESONIDE 0.5 MG/2 ML NEB SOLUTION NEB SCH ×2 (09:00→21:00)
[2023-03-22] MEDS: BENZONATATE 100 MG CAPSULE PO SCH ×3 (09:24→21:36)
[2023-03-22] MEDS: GuaiFENesin SR 600 MG ER TABLET PO SCH ×2 (09:24→21:36)
[2023-03-22] MEDS: HEPARIN SODIUM,PORCINE 5,000 UNITS/ML VIAL SQ SCH ×3 (09:24→16:33)
[2023-03-22] MEDS: DIVALPROEX SODIUM 500 MG DR TABLET PO SCH ×2 (09:24→21:36)
[2023-03-22] MEDS: CITRIC ACID/SODIUM CITRATE 30 ML SOLUTION UDCUP PO SCH ×2 (09:25→21:36)
[2023-03-22] MEDS: FENOFIBRATE 160 MG TABLET PO SCH (09:25)
[2023-03-22 09:30] LABS: CALCIUM, TOTAL 8.7 mg/dL (8.8-10.5); CREATININE 1.72 mg/dL (0.60-1.30); POTASSIUM 3.2 mmol/L (3.5-5.1)
[2023-03-22 09:34] LABS: MAGNESIUM 2.3 mg/dL (1.80-2.40); PHOSPHORUS 4.2 mg/dL (2.5-4.9)
[2023-03-22] MEDS ORDERED: POTASSIUM CHLORIDE 20 MEQ ER TABLET PO ONE (11:00)
[2023-03-22 12:31] LABS: GLUCOMETER DEV NAME(LOC) 5S.2C; GLUCOSE,POINT OF CARE 407 MG/DL (70-110)
[2023-03-22] MEDS ORDERED: POTASSIUM CHLORIDE 10 MEQ ER TABLET PO ONE (13:00)
[2023-03-22] MEDS: SODIUM CHLORIDE 1 GM TABLET PO SCH ×2 (14:09→17:24)
[2023-03-22] MEDS: CefTRIAXone SODIUM 2 GM in DEXTROSE 5%-WATER 50 ML IV SCH (14:09)
[2023-03-22] MEDS: MetroNIDAZOLE 500 MG TABLET PO SCH (16:34)
[2023-03-22] MEDS ORDERED: INSULIN LISPRO 100 UNITS/ML SQ ONE (17:00)
[2023-03-22] MEDS ORDERED: INSULIN GLARGINE,HUM.REC.ANLOG 100 UNITS/ML SQ SCH ×2 (21:00)
[2023-03-23] VITALS (7 sets, daily range): BP systolic 127–151; BP diastolic 63–89; PULSE 60–88; RESP 18–22; TEMP 97.4–98.7; O2SAT 96–98
[2023-03-23] MEDS: HEPARIN SODIUM,PORCINE 5,000 UNITS/ML VIAL SQ SCH ×3 (00:05→15:24)
[2023-03-23] MEDS: MethylPREDNISolone SOD SUCC 125 MG/2 ML VIAL IVP SCH ×2 (00:05→05:49)
[2023-03-23] MEDS: SODIUM CHLORIDE 1 GM TABLET PO SCH ×4 (00:05→17:53)
[2023-03-23] MEDS: MetroNIDAZOLE 500 MG TABLET PO SCH ×3 (00:06→15:23)
[2023-03-23] MEDS: INSULIN LISPRO 100 UNITS/ML SQ PRN ×5 (00:24→20:40)
[2023-03-23] MEDS: ALBUTEROL SULFATE 2.5 MG/0.5 ML NEB SOLUTION NEB SCH ×4 (02:00→19:48)
[2023-03-23] MEDS: IPRATROPIUM BROMIDE 0.5 MG/2.5 ML NEB SOLUTION NEB SCH ×4 (02:00→19:48)
[2023-03-23 03:16] LABS: GLUCOMETER DEV NAME(LOC) 5S.2C; GLUCOSE,POINT OF CARE 370 MG/DL (70-110)
[2023-03-23 03:16] LABS: GLUCOMETER DEV NAME(LOC) 5N.2C; GLUCOSE,POINT OF CARE 402 MG/DL (70-110)
[2023-03-23 03:16] LABS: GLUCOMETER DEV NAME(LOC) 5N.1C; GLUCOSE,POINT OF CARE 278 MG/DL (70-110)
[2023-03-23] MEDS: LEVOTHYROXINE SODIUM 50 MCG TABLET PO SCH (05:49)
[2023-03-23 06:53] LABS: CALCIUM, TOTAL 8.8 mg/dL (8.8-10.5); CREATININE 1.51 mg/dL (0.60-1.30); MAGNESIUM 2.4 mg/dL (1.80-2.40); POTASSIUM 3.9 mmol/L (3.5-5.1)
[2023-03-23 08:52] LABS: GLUCOMETER DEV NAME(LOC) 5S.1B; GLUCOSE,POINT OF CARE 262 MG/DL (70-110)
[2023-03-23] MEDS: BUDESONIDE 0.5 MG/2 ML NEB SOLUTION NEB SCH ×2 (09:00→19:48)
[2023-03-23] MEDS: DOCUSATE SODIUM 100 MG CAPSULE PO SCH ×2 (09:00→20:34)
[2023-03-23] MEDS: GuaiFENesin SR 600 MG ER TABLET PO SCH ×2 (09:44→20:29)
[2023-03-23] MEDS: FENOFIBRATE 160 MG TABLET PO SCH (09:44)
[2023-03-23] MEDS: BENZONATATE 100 MG CAPSULE PO SCH ×3 (09:44→20:29)
[2023-03-23] MEDS: DIVALPROEX SODIUM 500 MG DR TABLET PO SCH ×2 (09:45→20:29)
[2023-03-23] MEDS: CITRIC ACID/SODIUM CITRATE 30 ML SOLUTION UDCUP PO SCH ×2 (09:46→20:29)
[2023-03-23] MEDS ORDERED: MethylPREDNISolone SOD SUCC 125 MG/2 ML VIAL IVP SCH (12:00)
[2023-03-23 12:06] LABS: GLUCOMETER DEV NAME(LOC) 5S.2C; GLUCOSE,POINT OF CARE 352 MG/DL (70-110)
[2023-03-23] MEDS: CefTRIAXone SODIUM 2 GM in DEXTROSE 5%-WATER 50 ML IV SCH (15:23)
[2023-03-23] MEDS ORDERED: MethylPREDNISolone SOD SUCC 40 MG/ML VIAL IVP SCH (15:42)
[2023-03-23] MEDS: MethylPREDNISolone SOD SUCC 40 MG/ML VIAL IVP SCH (17:53)
[2023-03-23 19:56] LABS: GLUCOMETER DEV NAME(LOC) 5N.2C; GLUCOSE,POINT OF CARE 306 MG/DL (70-110)
[2023-03-23] MEDS: INSULIN GLARGINE,HUM.REC.ANLOG 100 UNITS/ML SQ SCH (20:39)
[2023-03-24 00:44] VITALS: BP 140/60; PULSE 60; RESP 19; TEMP 97.5
[2023-03-24 00:51] LABS: GLUCOMETER DEV NAME(LOC) 5N.1C; GLUCOSE,POINT OF CARE 337 MG/DL (70-110)
[2023-03-24] MEDS: SODIUM CHLORIDE 1 GM TABLET PO SCH ×4 (01:19→17:03)
[2023-03-24] MEDS: MetroNIDAZOLE 500 MG TABLET PO SCH ×3 (01:19→17:03)
[2023-03-24] MEDS: MethylPREDNISolone SOD SUCC 40 MG/ML VIAL IVP SCH ×4 (01:19→17:03)
[2023-03-24] MEDS: IPRATROPIUM BROMIDE 0.5 MG/2.5 ML NEB SOLUTION NEB SCH ×4 (02:00→20:00)
[2023-03-24] MEDS: ALBUTEROL SULFATE 2.5 MG/0.5 ML NEB SOLUTION NEB SCH ×4 (02:00→20:00)
[2023-03-24 06:16] VITALS: BP 132/71; PULSE 63; RESP 19; TEMP 98
[2023-03-24] MEDS: LEVOTHYROXINE SODIUM 50 MCG TABLET PO SCH (07:08)
[2023-03-24] MEDS: INSULIN LISPRO 100 UNITS/ML SQ PRN ×4 (07:19→21:14)
[2023-03-24 08:00] VITALS: BP 129/62; PULSE 56; RESP 18; TEMP 99.1
[2023-03-24] MEDS: BUDESONIDE 0.5 MG/2 ML NEB SOLUTION NEB SCH ×2 (08:04→20:53)
[2023-03-24] MEDS: DIVALPROEX SODIUM 500 MG DR TABLET PO SCH ×2 (08:53→20:52)
[2023-03-24] MEDS: PredniSONE 10 MG TABLET PO SCH (08:53)
[2023-03-24] MEDS: BENZONATATE 100 MG CAPSULE PO SCH ×3 (08:53→20:52)
[2023-03-24] MEDS: FENOFIBRATE 160 MG TABLET PO SCH (08:53)
[2023-03-24] MEDS: HEPARIN SODIUM,PORCINE 5,000 UNITS/ML VIAL SQ SCH ×3 (08:55→17:03)
[2023-03-24] MEDS: GuaiFENesin SR 600 MG ER TABLET PO SCH ×2 (08:55→20:52)
[2023-03-24] MEDS: DOCUSATE SODIUM 100 MG CAPSULE PO SCH ×2 (08:56→20:48)
[2023-03-24] MEDS: CITRIC ACID/SODIUM CITRATE 30 ML SOLUTION UDCUP PO SCH ×2 (08:56→20:53)
[2023-03-24 09:23] LABS: HEMATOCRIT 37.6 % (36-46); MEAN CORPUSCULAR HEMOGLOBIN 26.8 pg (26.0-34.0); MEAN CORPUSCULAR VOLUME 84 fL (80-100); PLATELET COUNT (AUTO) 226 K/uL (150-450); RED BLOOD CELL COUNT(AUTO) 4.49 MIL/uL (4.00-5.20); RED CELL DISTRIBUTION WIDTH 16.1 % (11.5-14.5); WHITE BLOOD COUNT (AUTO) 8.6 K/uL (4.5-11.0)
[2023-03-24 09:33] LABS: CALCIUM, TOTAL 8.8 mg/dL (8.8-10.5); CREATININE 1.51 mg/dL (0.60-1.30); MAGNESIUM 2.6 mg/dL (1.80-2.40); PHOSPHORUS 4.4 mg/dL (2.5-4.9); POTASSIUM 3.8 mmol/L (3.5-5.1)
[2023-03-24 10:23] LABS: BAND NEUTROPHILS % (MANUAL) 7 % (0-5); LYMPHOCYTES % (MANUAL) 19 % (22-44); METAMYELOCYTES % 1 % (0-0); MONOCYTES % (MANUAL) 2 % (2-9); SEGMENTED NEUTROPHILS % 71 % (40-70); TOTAL CELLS COUNTED 100
[2023-03-24 10:24] LABS: RBC MORPHOLOGY COMMENT NORMAL RBC MORPH
[2023-03-24 11:48] VITALS: BP 141/76; PULSE 66; RESP 19; TEMP 97.4
[2023-03-24 15:40] VITALS: BP 148/75; PULSE 67; RESP 21; TEMP 97.4
[2023-03-24] MEDS: CefTRIAXone SODIUM 2 GM in DEXTROSE 5%-WATER 50 ML IV SCH (17:03)
[2023-03-24 18:42] LABS: GLUCOMETER DEV NAME(LOC) 5S.2C; GLUCOSE,POINT OF CARE 340 MG/DL (70-110)
[2023-03-24 20:01] LABS: GLUCOMETER DEV NAME(LOC) 5N.2C; GLUCOSE,POINT OF CARE 330 MG/DL (70-110)
[2023-03-24 20:01] LABS: GLUCOMETER DEV NAME(LOC) 5N.1C; GLUCOSE,POINT OF CARE 318 MG/DL (70-110)
[2023-03-24 21:11] VITALS: BP 139/74; PULSE 72; RESP 20; TEMP 98.1
[2023-03-24] MEDS: INSULIN GLARGINE,HUM.REC.ANLOG 100 UNITS/ML SQ SCH (21:13)
[2023-03-25] VITALS (7 sets, daily range): BP systolic 135–146; BP diastolic 66–79; PULSE 61–75; RESP 18–20; TEMP 97.5–98
[2023-03-25] MEDS: MetroNIDAZOLE 500 MG TABLET PO SCH ×3 (00:53→16:26)
[2023-03-25] MEDS: HEPARIN SODIUM,PORCINE 5,000 UNITS/ML VIAL SQ SCH ×4 (00:53→23:37)
[2023-03-25] MEDS: SODIUM CHLORIDE 1 GM TABLET PO SCH ×5 (00:53→23:37)
[2023-03-25] MEDS: MethylPREDNISolone SOD SUCC 40 MG/ML VIAL IVP SCH ×2 (00:53→06:26)
[2023-03-25] MEDS: ALBUTEROL SULFATE 2.5 MG/0.5 ML NEB SOLUTION NEB SCH ×4 (02:00→19:37)
[2023-03-25] MEDS: IPRATROPIUM BROMIDE 0.5 MG/2.5 ML NEB SOLUTION NEB SCH ×4 (02:00→19:37)
[2023-03-25] MEDS: LEVOTHYROXINE SODIUM 50 MCG TABLET PO SCH (06:33)
[2023-03-25] MEDS: INSULIN LISPRO 100 UNITS/ML SQ PRN ×4 (06:36→20:16)
[2023-03-25 08:55] LABS: CALCIUM, TOTAL 8.4 mg/dL (8.8-10.5); CREATININE 1.33 mg/dL (0.60-1.30); MAGNESIUM 2.3 mg/dL (1.80-2.40); PHOSPHORUS 4.2 mg/dL (2.5-4.9); POTASSIUM 3.7 mmol/L (3.5-5.1)
[2023-03-25] MEDS: BUDESONIDE 0.5 MG/2 ML NEB SOLUTION NEB SCH ×2 (08:55→19:37)
[2023-03-25] MEDS: DOCUSATE SODIUM 100 MG CAPSULE PO SCH ×2 (09:00→21:00)
[2023-03-25] MEDS: GuaiFENesin SR 600 MG ER TABLET PO SCH ×2 (09:25→20:07)
[2023-03-25] MEDS: DIVALPROEX SODIUM 500 MG DR TABLET PO SCH ×2 (09:25→20:07)
[2023-03-25] MEDS: PredniSONE 10 MG TABLET PO SCH (09:26)
[2023-03-25] MEDS: BENZONATATE 100 MG CAPSULE PO SCH ×3 (09:26→20:07)
[2023-03-25] MEDS: CITRIC ACID/SODIUM CITRATE 30 ML SOLUTION UDCUP PO SCH ×2 (09:27→20:06)
[2023-03-25] MEDS: FENOFIBRATE 160 MG TABLET PO SCH (09:28)
[2023-03-25 12:46] LABS: GLUCOMETER DEV NAME(LOC) 5S.2C; GLUCOSE,POINT OF CARE 359 MG/DL (70-110)
[2023-03-25] MEDS: CefTRIAXone SODIUM 2 GM in DEXTROSE 5%-WATER 50 ML IV SCH (16:26)
[2023-03-25] MEDS: INSULIN GLARGINE,HUM.REC.ANLOG 100 UNITS/ML SQ SCH (20:16)
[2023-03-25 21:21] LABS: GLUCOMETER DEV NAME(LOC) 5N.2C; GLUCOSE,POINT OF CARE 291 MG/DL (70-110)
[2023-03-25 21:21] LABS: GLUCOMETER DEV NAME(LOC) 5N.2C; GLUCOSE,POINT OF CARE 247 MG/DL (70-110)
[2023-03-25 23:06] LABS: GLUCOMETER DEV NAME(LOC) 5S.1B; GLUCOSE,POINT OF CARE 281 MG/DL (70-110)
[2023-03-26] MEDS: MetroNIDAZOLE 500 MG TABLET PO SCH ×2 (00:29→09:29)
[2023-03-26 00:31] LABS: GLUCOMETER DEV NAME(LOC) 5N.1C; GLUCOSE,POINT OF CARE 253 MG/DL (70-110)
[2023-03-26] MEDS: ALBUTEROL SULFATE 2.5 MG/0.5 ML NEB SOLUTION NEB SCH ×2 (02:00→07:45)
[2023-03-26] MEDS: IPRATROPIUM BROMIDE 0.5 MG/2.5 ML NEB SOLUTION NEB SCH ×2 (02:00→07:45)
[2023-03-26 05:21] VITALS: BP 117/51; PULSE 79; RESP 18; TEMP 97.5
[2023-03-26] MEDS: LEVOTHYROXINE SODIUM 50 MCG TABLET PO SCH (05:41)
[2023-03-26] MEDS: SODIUM CHLORIDE 1 GM TABLET PO SCH (05:41)
[2023-03-26 06:06] LABS: GLUCOMETER DEV NAME(LOC) 6N.1; GLUCOSE,POINT OF CARE 109 MG/DL (70-110)
[2023-03-26 07:43] VITALS: BP 127/68; PULSE 71; RESP 17; TEMP 97.8
[2023-03-26 07:45] VITALS: PULSE 73; RESP 16; O2SAT 96
[2023-03-26] MEDS: BUDESONIDE 0.5 MG/2 ML NEB SOLUTION NEB SCH (07:45)
[2023-03-26 07:59] VITALS: PULSE 75; RESP 16; O2SAT 100
[2023-03-26 08:00] VITALS: PULSE 71; RESP 16; O2SAT 100
[2023-03-26 08:06] VITALS: PULSE 74; RESP 20; O2SAT 100
[2023-03-26] MEDS: DOCUSATE SODIUM 100 MG CAPSULE PO SCH (09:29)
[2023-03-26] MEDS: GuaiFENesin SR 600 MG ER TABLET PO SCH (09:29)
[2023-03-26] MEDS: FENOFIBRATE 160 MG TABLET PO SCH (09:30)
[2023-03-26] MEDS: BENZONATATE 100 MG CAPSULE PO SCH (09:30)
[2023-03-26] MEDS: DIVALPROEX SODIUM 500 MG DR TABLET PO SCH (09:30)
[2023-03-26] MEDS: PredniSONE 10 MG TABLET PO SCH (09:31)
[2023-03-26] MEDS: CITRIC ACID/SODIUM CITRATE 30 ML SOLUTION UDCUP PO SCH (09:31)
[2023-03-26] MEDS: HEPARIN SODIUM,PORCINE 5,000 UNITS/ML VIAL SQ SCH (09:32)
[2023-03-26] MEDS ORDERED: ALBU2.5V39 NEB ×2 (11:17→11:42)
[2023-03-26] MEDS ORDERED: BENZ-227 PO (11:18)
[2023-03-26] MEDS ORDERED: BICIT15L PO (11:19)
[2023-03-26] MEDS ORDERED: CEFT2VIA60 IM (11:27)
[2023-03-26] MEDS ORDERED: DOCU-385 PO (11:28)
[2023-03-26] MEDS ORDERED: GUAIF600 PO ×2 (11:30→11:31)
[2023-03-26] MEDS ORDERED: HEPA500018 SQ (11:36)
[2023-03-26] MEDS ORDERED: INSLAN SQ (11:36)
[2023-03-26] MEDS ORDERED: METR500 PO (11:37)
[2023-03-26] MEDS ORDERED: PRED-729 PO (11:37)
[2023-03-26] MEDS ORDERED: ACET-2247 PO (11:38)
== END 2023-03-26 12:20 | DRG 871 ==
LOC: EMS 21:13 → ICU 03-19 00:30 → 5S 03-21 19:30 → 6S 03-25 22:50
PROVIDERS: ADMIT Internal Medicine; ATTEND Internal Medicine
DX: A41.51 Sepsis due to Escherichia coli [E. coli] (principal); E11.00 Type 2 diabetes mellitus with hyperosmolarity without nonketotic hyperglycemic-hyperosmolar coma (NKHHC); E11.10 Type 2 diabetes mellitus with ketoacidosis without coma; G92.8 Other toxic encephalopathy; R57.1 Hypovolemic shock; R65.21 Severe sepsis with septic shock; J96.91 Respiratory failure, unspecified with hypoxia; N17.9 Acute kidney failure, unspecified; J44.1 Chronic obstructive pulmonary disease with (acute) exacerbation; J90 Pleural effusion, not elsewhere classified; N12 Tubulo-interstitial nephritis, not specified as acute or chronic; J98.11 Atelectasis; K80.20 Calculus of gallbladder without cholecystitis without obstruction; D64.9 Anemia, unspecified; N18.9 Chronic kidney disease, unspecified; Z20.822 Contact with and (suspected) exposure to COVID-19; E03.9 Hypothyroidism, unspecified; E11.22 Type 2 diabetes mellitus with diabetic chronic kidney disease; R16.0 Hepatomegaly, not elsewhere classified; E87.6 Hypokalemia; E66.9 Obesity, unspecified; F20.9 Schizophrenia, unspecified; N20.0 Calculus of kidney; F17.210 Nicotine dependence, cigarettes, uncomplicated; E78.00 Pure hypercholesterolemia, unspecified; F41.9 Anxiety disorder, unspecified; F32.A Depression, unspecified; I11.9 Hypertensive heart disease without heart failure; B96.1 Klebsiella pneumoniae [K. pneumoniae] as the cause of diseases classified elsewhere; Z82.49 Family history of ischemic heart disease and other diseases of the circulatory system; Z87.442 Personal history of urinary calculi; Z88.7 Allergy status to serum and vaccine; Z68.31 Body mass index [BMI] 31.0-31.9, adult; Z79.899 Other long term (current) drug therapy
CPT/HCPCS: 36600; 51702; 71045; 71250; 74176; 76705; 76770; 78226; 78582; 80048; 80053; 80164; 80307; 81001; 81002; 82009; 82805; 82962; 83036; 83605; 83690; 83735; 83880; 84100; 84145; 84484; 85025; 85610; 87040; 87077; 87081; 87086; 87186; 87205; 93005; 93970; 94640; 97116; 97162; 97530; 99291; A9537; A9539; A9540; G0378; G0480; J0696; J1644; J1815; J1956; J2370; J2405; J2543; J2920; J2930; J3480; J7030; J7040; J7050; J7060; Q9967; 36415-L1; 36415-TC; J7512; J7613; Z7610

== ENCOUNTER 2023-10-20 16:43 | Inpatient (IN) | payer MEDICARE, OTHER ==
[~2023-10-20] VITALS: Ht 165.1 cm; Wt 78.5 kg
[~2023-10-20 16:43] MED LIST changes: +ACET-2247 PO; +ALBU2.5V39 NEB; -AMLO-257 PO; -ARIP882S2 IM; +BENZ-227 PO; +BICIT15L PO; +CEFT2VIA60 IM; -CHOL500013 PO; +DOCU-385 PO; +FENO160T75 PO; -FLUO20CA36 PO; +GUAIF600 PO; +HEPA500018 SQ; +INSLAN SQ; -LISI-893 PO; -METF-1211 PO; +METR500 PO; +PRED-729 PO
[2023-10-20 17:24] LABS: EOSINOPHILS % (AUTO) 3.1 % (1.0-6.0); HEMATOCRIT 40.3 % (36-46); HEMOGLOBIN 13.4 g/dL (12.0-16.0); LYMPHOCYTES # (AUTO) 2.6 K/uL (1.0-4.8); LYMPHOCYTES % (AUTO) 24.8 % (22.0-44.0); MEAN CORPUSCULAR HGB CONC 33.3 G/dL (31.0-37.0); MEAN CORPUSCULAR VOLUME 84 fL (80-100); MONOCYTES # (AUTO) 0.7 K/uL (0.1-1.0); MONOCYTES % (AUTO) 6.9 % (2.0-9.0); NEUTROPHILS # (AUTO) 6.6 K/uL (1.8-7.7); NEUTROPHILS % (AUTO) 64.2 % (40.0-70.0); PLATELET COUNT (AUTO) 344 K/uL (150-450); RED BLOOD CELL COUNT(AUTO) 4.79 MIL/uL (4.00-5.20); RED CELL DISTRIBUTION WIDTH 14.2 % (11.5-14.5); WHITE BLOOD COUNT (AUTO) 10.3 K/uL (4.5-11.0)
[2023-10-20 17:33] LABS: ANION GAP 8 mmol/L (8-16); CALCIUM, TOTAL 9.7 mg/dL (8.8-10.5); CARBON DIOXIDE 31 mmol/L (22-29); CHLORIDE 99 mmol/L (98-107); CREATININE 1.45 mg/dL (0.60-1.30); GLOMERULAR FILTR. RATE CALC 37 mL/min (>60); GLUCOSE,RANDOM 135 mg/dL (70-110); POTASSIUM 4.5 mmol/L (3.5-5.1); SODIUM SERUM 138 mmol/L (136-145); UREA NITROGEN, BLOOD 37 mg/dL (7-18)
[2023-10-20 17:38] LABS: ALANINE AMINOTRANSFERASE 23 U/L (12-78); ALBUMIN 3.9 g/dL (3.4-5.0); ALKALINE PHOSPHATASE 70 U/L (46-116); ASPARTATE AMINOTRANSFERASE 14 U/L (15-37); BILIRUBIN,TOTAL 0.4 mg/dL (0.1-1.0)
[2023-10-20 17:40] LABS: ALCOHOL, BLOOD (SERUM) < 3 mg/dL (0-10)
[2023-10-20 17:46] LABS: COVID AG,FIA SOURCE NASAL SWAB
[2023-10-20 18:09] LABS: SARS-COV2 (COVID) ANTIGEN,FIA Negative (Negative)
[2023-10-20] MEDS ORDERED: OLANZapine 5 MG RAPDIS TABLET PO PRN (21:30)
[2023-10-20] MEDS ORDERED: LORazepam 2 MG TABLET PO PRN (21:30)
[2023-10-20] MEDS: ZOLPIDEM TARTRATE 10 MG TABLET PO PRN (22:01)
[2023-10-20] MEDS: ACETAMINOPHEN 325 MG TABLET PO ONE (22:08)
[2023-10-21 03:56] VITALS: BP 125/62; PULSE 68; RESP 18; TEMP 97.8; O2SAT 98
[2023-10-21] MEDS ORDERED: PNEUMOCOCCAL VACCINE POLYVALENT 0.5 ML SYRINGE [PPSV23] IM. ONE (05:15)
[2023-10-21] MEDS ORDERED: GLUCAGON,HUMAN RECOMBINANT 1 MG VIAL IM PRN (09:45)
[2023-10-21] MEDS ORDERED: ALBUTEROL SULFATE HFA 90 MCG/PUFF 8 GM INHALER IH PRN (09:45)
[2023-10-21] MEDS ORDERED: HydrOXYzine PAMOATE 50 MG CAPSULE PO PRN (10:00)
[2023-10-21] MEDS ORDERED: PROMETHAZINE HCL 25 MG TABLET PO PRN (10:00)
[2023-10-21] MEDS ORDERED: MAGNESIUM HYDROXIDE SUSPENSION 30 ML UDCUP PO PRN (10:00)
[2023-10-21] MEDS ORDERED: LOPERAMIDE HCL 2 MG CAPSULE PO PRN (10:00)
[2023-10-21] MEDS ORDERED: GuaiFENesin/D-METHORPHAN [SUGAR-FREE] 200-20MG/10 ML SYRUP UDCUP PO PRN (10:00)
[2023-10-21] MEDS ORDERED: TUBERCULIN, PURIFIED PROTEIN DERIVATIVE 5 TU/0.1 ML SYRINGE ID ONE (10:00)
[2023-10-21] MEDS: INSULIN LISPRO 100 UNITS/ML SQ PRN (12:47)
[2023-10-21 12:56] LABS: GLUCOMETER DEV NAME(LOC) BV2S.; GLUCOSE,POINT OF CARE 175 MG/DL (70-110)
[2023-10-21] MEDS: DIVALPROEX SODIUM 500 MG ER TABLET PO SCH (13:24)
[2023-10-21] MEDS: PALIPERIDONE PALMITATE 234 MG/1.5 ML SYRINGE IM ONE (15:46)
[2023-10-21] MEDS: THIAMINE 100 MG TABLET PO SCH (16:16)
[2023-10-21] MEDS: DOCUSATE SODIUM 100 MG CAPSULE PO SCH (16:17)
[2023-10-21 16:41] VITALS: BP 120/60; PULSE 67; RESP 17; TEMP 98.2; O2SAT 98
[2023-10-21 16:50] LABS: GLUCOMETER DEV NAME(LOC) BV2S.; GLUCOSE,POINT OF CARE 147 MG/DL (70-110)
[2023-10-21 20:18] VITALS: BP 142/65; PULSE 75; RESP 19; TEMP 97.3; O2SAT 100
[2023-10-21] MEDS: MELATONIN 5 MG TABLET PO SCH (20:40)
[2023-10-21] MEDS: OLANZapine 5 MG RAPDIS TABLET PO SCH (20:40)
[2023-10-21] MEDS: INSULIN GLARGINE,HUM.REC.ANLOG 100 UNITS/ML SQ SCH (21:00)
[2023-10-22] MEDS: ACETAMINOPHEN 325 MG TABLET PO PRN (01:13)
[2023-10-22 06:25] LABS: GLUCOMETER DEV NAME(LOC) BV2S.; GLUCOSE,POINT OF CARE 126 MG/DL (70-110)
[2023-10-22] MEDS: LEVOTHYROXINE SODIUM 50 MCG TABLET PO SCH (06:32)
[2023-10-22 08:56] LABS: CHOL/HDL RATIO 4.7 (3.9-5.7); FREE T4 (FREE THYROXINE) 1.04 ng/dL (0.76-1.46); THYROID STIMULATING HORMONE 1.38 uIU/mL (0.36-3.74)
[2023-10-22 08:57] LABS: HEMOGLOBIN A1C 7.1 % (3.8-5.6)
[2023-10-22] MEDS: FOLIC ACID 1 MG TABLET PO SCH (09:23)
[2023-10-22] MEDS: MULTIVITAMINS WITH MINERALS, THERAPEUTIC TABLET PO SCH (09:23)
[2023-10-22] MEDS: FENOFIBRATE 160 MG TABLET PO SCH (09:23)
[2023-10-22] MEDS: OMEGA-3/DHA/EPA/FISH OIL 1,000 MG CAPSULE PO SCH (09:24)
[2023-10-22] MEDS: MAG HYDROX/ALUMINUM HYD/SIMETH ES 30 ML SUSPENSION UDCUP PO PRN (09:25)
[2023-10-22 10:16] VITALS: BP 135/65; PULSE 84; RESP 17; TEMP 97.9; O2SAT 99
[2023-10-22 17:01] LABS: GLUCOMETER DEV NAME(LOC) BV2S.; GLUCOSE,POINT OF CARE 212 MG/DL (70-110)
[2023-10-22 20:05] LABS: GLUCOMETER DEV NAME(LOC) BV2S.; GLUCOSE,POINT OF CARE 230 MG/DL (70-110)
[2023-10-22 20:44] VITALS: BP 138/76; PULSE 96; RESP 16; TEMP 98.5; O2SAT 97
[2023-10-22] MEDS: OLANZapine 5 MG RAPDIS TABLET PO SCH (21:00)
[2023-10-22 22:00] VITALS: RESP 17
[2023-10-22 23:00] VITALS: RESP 17
[2023-10-23 08:00] VITALS: BP 149/72; PULSE 108; RESP 17; TEMP 98.4
[2023-10-23 11:36] LABS: GLUCOMETER DEV NAME(LOC) BV2S.; GLUCOSE,POINT OF CARE 167 MG/DL (70-110)
[2023-10-23 11:36] LABS: GLUCOMETER DEV NAME(LOC) BV2S.; GLUCOSE,POINT OF CARE 155 MG/DL (70-110)
[2023-10-23] MEDS ORDERED: DIVA500T69 PO (14:15)
[2023-10-23] MEDS ORDERED: OLAN5TAB94 PO (14:15)
[2023-10-23] MEDS ORDERED: MELA5TAB40 PO ×2 (14:15→18:18)
[2023-10-23] MEDS ORDERED: OMEG-135 PO ×2 (14:15→18:21)
[2023-10-23 16:45] LABS: GLUCOMETER DEV NAME(LOC) BV2S.; GLUCOSE,POINT OF CARE 164 MG/DL (70-110)
[2023-10-23] MEDS ORDERED: DIVA500T53 PO (18:16)
[2023-10-23] MEDS ORDERED: OLAN10TA26 PO (18:19)
[2023-10-25] MEDS ORDERED: PALIPERIDONE PALMITATE 156 MG/ML SYRINGE IM ONE (09:00)
== END 2023-10-23 18:36 | disposition home or self-care (01) | DRG 885 ==
LOC: EMS 16:43 → B2S 10-21 02:30
PROVIDERS: ADMIT Psychiatry & Neurology Psychiatry; ATTEND Psychiatry & Neurology Psychiatry
PROC: GZHZZZZ Group Psychotherapy (ICD-10-PCS; principal; 2023-10-21)
PROC: GZ51ZZZ Individual Psychotherapy, Behavioral (ICD-10-PCS; 2023-10-21)
PROC: GZ56ZZZ Individual Psychotherapy, Supportive (ICD-10-PCS; 2023-10-23)
DX: F25.9 Schizoaffective disorder, unspecified (principal); N18.9 Chronic kidney disease, unspecified; E11.22 Type 2 diabetes mellitus with diabetic chronic kidney disease; K59.00 Constipation, unspecified; J45.909 Unspecified asthma, uncomplicated; I12.9 Hypertensive chronic kidney disease with stage 1 through stage 4 chronic kidney disease, or unspecified chronic kidney disease; E78.00 Pure hypercholesterolemia, unspecified; E03.9 Hypothyroidism, unspecified; Z20.822 Contact with and (suspected) exposure to COVID-19; F41.9 Anxiety disorder, unspecified; F32.A Depression, unspecified; Z79.4 Long term (current) use of insulin; Z79.899 Other long term (current) drug therapy; Z87.891 Personal history of nicotine dependence; Z98.891 History of uterine scar from previous surgery; Z88.7 Allergy status to serum and vaccine
CPT/HCPCS: 80053; 80061; 82962; 83036; 84439; 84443; 85025; 86592; 99285; G0480; J1815; Q9967